=== PATIENT | male | born 1985 | race Caucasian/White ===

== ENCOUNTER 2020-06-20 18:10 | Emergency (ER) | payer BC ==
--- NOTE | 2020-06-20 19:30 | RAD REPORT ---
EXAM DESCRIPTION: RAD - Chest Single View - 06/20/2020 7:20 pm CLINICAL HISTORY: CHEST PAIN Chest pain. COMPARISON: No comparisons FINDINGS: Portable technique limits examination quality. The lungs are grossly clear. The heart is normal in size. No displaced fractures. IMPRESSION: No acute intrathoracic process suspected.
[2020-06-20] MEDS ORDERED: NA CHLORIDE 0.9% 1,000 ML ONE (19:31)
[2020-06-20 19:34] LABS: Absolute Lymphocytes (CBC) 1.3 K/uL (0.7-4.9); Basophils % 0.3 % (0-1.3); Hematocrit 43.2 % (39.6-49.0); Lymphocytes % 9.3 % (15.3-44.8); MPV 9.7 fL (7.6-11.3); RBC Red Blood Cell Count 4.78 M/uL (4.33-5.43)
[2020-06-20 19:44] LABS: Barbiturates NEGATIVE (NEGATIVE); Benzodiazepines NEGATIVE (NEGATIVE); Cocaine NEGATIVE (NEGATIVE); METHAMPHETAM NEGATIVE (NEGATIVE); Methadone NEGATIVE (NEGATIVE); Opiates NEGATIVE (NEGATIVE); Phencyclidine NEGATIVE (NEGATIVE); THC Cannibis NEGATIVE (NEGATIVE)
[2020-06-20 19:47] LABS: ALT/SGPT 25 U/L (12-78); AST/SGOT 11 U/L (15-37); Albumin 4.2 g/dL (3.4-5.0); Alkaline Phosphatase 73 U/L (45-117); BUN Blood Urea Nitrogen 17 mg/dL (7-18); Bicarbonate 24 mmol/L (21-32); Bilirubin Direct < 0.1 mg/dL (0-0.2); Bilirubin Total 0.3 mg/dL (0.2-1.0); Glucose Level 97 mg/dL (74-106); Magnesium 2.2 mg/dL (1.8-2.4); Potassium 4.1 mmol/L (3.5-5.1); Protein, Total 7.9 g/dL (6.4-8.2); Sodium Level 139 mmol/L (136-145); Troponin (Emerg Dept Use Only) < 0.02 ng/mL (0.0-0.045)
[2020-06-20 19:54] LABS: Protime INR 1.12
--- NOTE | 2020-06-20 20:11 | RAD REPORT ---
EXAM DESCRIPTION: CT - Head Brain Wo Cont - 06/20/2020 8:02 pm CLINICAL HISTORY: near-syncope Headache, drowsiness COMPARISON: No comparisons TECHNIQUE: All CT scans are performed using dose optimization technique as appropriate and may inclu de automated exposure control or mA/KV adjustment according to patient size. FINDINGS: No intracranial hemorrhage, hydrocephalus or extra-axial fluid collection.No areas of brai n edema or evidence of midline shift. The paranasal sinuses and mastoids are clear. The calvarium is intact. IMPRESSION: No acute intracranial abnormality.
[2020-06-20 20:49] LABS: Urine Blood NEGATIVE (NEG); Urine Glucose NEGATIVE (NEG); Urine Protein NEGATIVE (NEG); Urine Specific Gravity 1.015 (1.005-1.030)
--- NOTE | 2020-06-20 21:40 | EDPHYS ---
Physician Documentation [facility] Name: Andrew Wang Age: 34 yrs Sex: Male : 1985 Arrival Date: 06/20/2020 Time: 18:15 Bed 19 Private MD: ED Physician Barrington Smith HPI: 06/20 20:00 This 34 yrs old Male presents to ER via Ambulatory with complaints of Nausea, cp Anxiety. 20:00 The patient presents to the emergency department with nausea, that is mild. cp 20:00 Onset: The symptoms/episode began/occurred 3 week(s) ago. cp 20:00 Patient reports intermittent episodes chest pain, near-syncope, numbness in hands and cp legs, pain to back of head for past 3 weeks. Patient reports he was diagnosed with anxiety and prescribed Lorazepam. Had episode today at work today and took medication w/o relief. Patient denies history of anxiety and/or depression and has not been under increased stress recently. 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 - Social history:: Smoking status: Patient reports use of chewing tobacco. Patient denies any tobacco usage or history of. ROS: 20:05 Constitutional: Negative for body aches, chills, fever, poor PO intake. cp 20:05 Eyes: Negative for injury, pain, redness, and discharge. cp 20:05 ENT: Negative for ear pain, sore throat. cp 20:05 Cardiovascular: Positive for chest pain, Negative for edema, palpitations. 20:05 Respiratory: Negative for cough, shortness of breath, wheezing. 20:05 Abdomen/GI: Positive for nausea, Negative for abdominal pain, vomiting, diarrhea, constipation. 20:05 Neuro: Positive for headache, numbness, near syncope, of the right hand, left hand, right leg and left leg, Negative for altered mental status, weakness. 20:05 Psych: Negative for depression, drug dependence, auditory hallucinations, visual hallucinations, homicidal ideation, suicidal ideation. 20:05 All other systems are negative. Exam: 19:58 ECG was reviewed by the Attending Physician. cp 20:10 Constitutional: The patient appears in no acute distress, alert, awake, comfortable, cp non-diaphoretic, non-toxic, well developed, well nourished. 20:10 Head/Face: Normocephalic, atraumatic. cp 20:10 Eyes: Periorbital structures: appear normal, Conjunctiva: normal, no exudate, no injection, Sclera: no appreciated abnormality, Lids and lashes: appear normal, bilaterally. 20:10 ENT: External ear(s): are unremarkable, Nose: is normal, Mouth: Lips: moist, Oral mucosa: moist, Posterior pharynx: Airway: no evidence of obstruction, patent. 20:10 Neck: ROM/movement: is normal, is supple, without pain, no range of motions limitations. 20:10 Chest/axilla: Inspection: normal, Palpation: is normal, no crepitus, no tenderness. 20:10 Cardiovascular: Rate: normal, Rhythm: regular, Heart sounds: murmur, not appreciated, Edema: is not appreciated, JVD: is not appreciated. 20:10 Respiratory: the patient does not display signs of respiratory distress, Respirations: normal, no use of accessory muscles, no retractions, labored breathing, is not present, Breath sounds: are clear throughout, no decreased breath sounds, no stridor, no wheezing. 20:10 Abdomen/GI: Inspection: abdomen appears normal, Palpation: abdomen is soft and non-tender, in all quadrants. 20:10 Neuro: Orientation: to person, place \T\ time. Mentation: is normal, Cerebellar function: is grossly normal, Motor: moves all fours, strength is normal. Vital Signs: 18:18 BP 124 / 88; Pulse 110; Resp 18; Temp 98.2; Pulse Ox 98% ; Weight 91.63 kg; Height 5 ll1 ft. 9 in. (175.26 cm); Pain 0/10; 19:45 BP 124 / 74; Pulse 86; Resp 18; Pulse Ox 97% ; ea 21:35 BP 113 / 77; Pulse 80; Resp 18; Pulse Ox 97% ; ea 18:18 Body Mass Index 29.83 (91.63 kg, 175.26 cm) ll1 MDM: 19:01 Patient medically screened. cp 19:30 Differential diagnosis: cardiac arrythmia, anxiety, electrolyte abnormality, cp intracranial mass. 21:38 Data reviewed: vital signs, nurses notes, lab test result(s), EKG, radiologic studies, cp CT scan, plain films. 21:38 Test interpretation: by ED physician or midlevel provider: ECG. Counseling: I had a cp detailed discussion with the patient and/or guardian regarding: the historical points, exam findings, and any diagnostic results supporting the discharge/admit diagnosis, lab results, radiology results, to return to the emergency department if symptoms worsen or persist or if there are any questions or concerns that arise at home. 06/20 19:03 Order name: Basic Metabolic Panel; Complete Time: 20:18 cp 06/20 21:14 Interpretation: Normal except: GFR 79. cp 06/20 19:03 Order name: CBC with Diff; Complete Time: 20:18 cp 06/20 20:18 Interpretation: Normal except: WBC 14.5; KIRK% 84.7; LYM% 9.3; NEUT A 12.3. cp 06/20 19:03 Order name: LFT's; Complete Time: 20:18 cp 06/20 21:14 Interpretation: Normal except: AST 11; GLOB 3.7. cp 06/20 19:03 Order name: Magnesium; Complete Time: 20:18 cp 06/20 19:03 Order name: PT-INR; Complete Time: 20:18 cp 06/20 21:14 Interpretation: Abnormal: PT 13.2. cp 06/20 19:03 Order name: Troponin (emerg Dept Use Only); Complete Time: 20:18 cp 06/20 19:03 Order name: XRAY Chest (1 view); Complete Time: 20:18 cp 06/20 21:15 Interpretation: Report reviewed. cp 06/20 19:03 Order name: UDS; Complete Time: 20:18 cp 06/20 19:03 Order name: D-Dimer; Complete Time: 20:18 cp 06/20 19:03 Order name: CT Head Brain wo Cont; Complete Time: 20:18 cp 06/20 20:19 Interpretation: Report reviewed. 06/20 19:28 Order name: Urine Dipstick--Ancillary (enter results); Complete Time: 21:14 tt3 06/20 21:14 Interpretation: Reviewed. cp 06/20 19:03 Order name: EKG; Complete Time: 19:05 cp 06/20 19:03 Order name: Cardiac monitoring; Complete Time: 19:29 cp 06/20 19:03 Order name: EKG - Nurse/Tech; Complete Time: 20:15 cp 06/20 19:03 Order name: IV Saline Lock; Complete Time: 19:29 cp 06/20 19:03 Order name: Labs collected and sent; Complete Time: 19:29 cp 06/20 19:03 Order name: O2 Per Protocol; Complete Time: 19:29 cp 06/20 19:03 Order name: O2 Sat Monitoring; Complete Time: 19:29 cp 06/20 19:03 Order name: Urine Dipstick-Ancillary (obtain specimen); Complete Time: 19:29 cp EC:58 Rate is 86 beats/min. Rhythm is regular. CT interval is normal. QRS interval is normal. cp QT interval is normal. Interpreted by me. Reviewed by me. Administered Medications: 19:04 CANCELLED (Physician Discretion): TORadol - Ketorolac 15 mg IVP once cp 19:20 Drug: NS 0.9% 1000 ml Route: IV; Rate: 1 bolus; Site: left antecubital; ea 21:57 Follow up: Response: No adverse reaction; IV Status: Completed infusion; IV Intake: ea 1000ml 21:57 Follow up: Response: No adverse reaction; IV Status: Completed infusion; IV Intake: ea 1000ml 19:42 Not Given (Other Intervention Used): NS 0.9% 1000 ml IV at 1 bolus Per protocol; 1000 ea mL bolus Disposition: 22:00 Chart complete. cp 06/21 07:06 Co-signature as Attending Physician, Barrington Smith MD. [email or web address] Disposition: 06/20/20 21:39 Discharged to Home. Impression: Nausea, Other chest pain, Headache. - Condition is Stable. - Discharge Instructions: Nonspecific Chest Pain, Near-Syncope, Aspirin and Your Heart, Generalized Anxiety Disorder. - Medication Reconciliation Form, Thank You Letter, Antibiotic Education, Prescription Opioid Use form. - Follow up: Private Physician; When: 1 - 2 days; Reason: Recheck today's complaints. - Problem is new. - Symptoms have improved. Signatures: Dispatcher [employer] EDMS Polo Patiño PA PA cp Antunez, Elena, RN RN ea Lewis, Lynsay, RN RN [facility] Barrington Smith MD MD 7 Corrections: (The following items were deleted from the chart) 06/20 19:04 19:03 TORadol - Ketorolac 15 mg IVP once ordered. cp cp 21:40 21:39 06/20/2020 21:39 Discharged to Home. Impression: Nausea; Other chest pain. cp Condition is Stable. Forms are Medication Reconciliation Form, Thank You Letter, Antibiotic Education, Prescription Opioid Use. Follow up: Private Physician; When: 1 - 2 days; Reason: Recheck today's complaints. Problem is new. Symptoms have improved. cp 21:57 21:40 06/20/2020 21:39 Discharged to Home. Impression: Nausea; Other chest pain; ea Headache. Condition is Stable. Discharge Instructions: Nonspecific Chest Pain, Aspirin and Your Heart, Near-Syncope. Forms are Medication Reconciliation Form, Thank You Letter, Antibiotic Education, Prescription Opioid Use. Follow up: Private Physician; When: 1 - 2 days; Reason: Recheck today's complaints. Problem is new. Symptoms have improved. cp
--- NOTE | 2020-06-20 21:40 | ER ---
Nurse's Notes [facility] Name: Andrew Wang Age: 34 yrs Sex: Male : 1985 Arrival Date: 06/20/2020 Time: 18:15 Bed 19 Private MD: Diagnosis: Nausea;Other chest pain;Headache Presentation: 06/20 18:18 Chief complaint: Patient states: CP, SOB, nausea, numbness to arms/legs int. for 3 ll1 weeks. Took extra lorazepam today, didn't help. Coronavirus screen: Client denies travel out of the [place] in the last 14 days. difficulty breathing, fatigue, nausea, Client presents with at least one sign or symptom that may indicate coronavirus-19. Standard/surgical mask placed on the client. Ebola Screen: Patient denies travel to an Ebola-affected area in the 21 days before illness onset. Initial Sepsis Screen: Does the patient meet any 2 criteria? HR > 90 bpm. No. Patient's initial sepsis screen is negative. Does the patient have a suspected source of infection? No. Patient's initial sepsis screen is negative. Risk Assessment: Do you want to hurt yourself or someone else? Patient reports no desire to harm self or others. Onset of symptoms was May 30, 2020. 18:18 Method Of Arrival: Ambulatory ll1 18:18 Acuity: ANUSHKA 3 ll1 Triage Assessment: 18:20 General: Appears distressed, comfortable, Behavior is cooperative, appropriate for age, bp anxious. Pain: Complains of pain in chest. EENT: No deficits noted. Neuro: Level of Consciousness is awake, alert, obeys commands, Oriented to Appropriate for age Reports ANXIETY. Cardiovascular: Rhythm is sinus tachycardia Chest pain is described as mild, began 3 WK AGO. Respiratory: Reports shortness of breath. GI: Reports lower abdominal pain, upper abdominal pain. : No signs and/or symptoms were reported regarding the genitourinary system. Derm: No deficits noted. Musculoskeletal: No deficits noted. 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 - Social history:: Smoking status: Patient reports use of chewing tobacco. Patient denies any tobacco usage or history of. Screenin:20 Abuse screen: Denies threats or abuse. Denies injuries from another. Nutritional bp screening: No deficits noted. Tuberculosis screening: No symptoms or risk factors identified. Fall Risk None identified. Assessment: 18:20 General: SEE TRIAGE NOTE. bp 19:15 General: Appears in no apparent distress. Behavior is appropriate for age. Pain: ea Complains of pain in chest. Neuro: Level of Consciousness is awake, alert, obeys commands, Oriented to person, place, time. Respiratory: Airway is patent Respiratory effort is even, unlabored, Respiratory pattern is regular, symmetrical. GI: Abdomen is non-distended. Derm: Skin is pink, warm \T\ dry. 20:15 Reassessment: Patient and/or family updated on plan of care and expected duration. Pain ea level reassessed. Patient is alert, oriented x 3, equal unlabored respirations, skin warm/dry/pink. Returned from CT awaiting on results. 21:55 Reassessment: Patient and/or family updated on plan of care and expected duration. Pain ea level reassessed. Patient is alert, oriented x 3, equal unlabored respirations, skin warm/dry/pink. Discharge instruction given to patient, verbalized the understanding of instruction. Pt left ED ambulatory tolerating well. Vital Signs: 18:18 BP 124 / 88; Pulse 110; Resp 18; Temp 98.2; Pulse Ox 98% ; Weight 91.63 kg; Height 5 ll1 ft. 9 in. (175.26 cm); Pain 0/10; 19:45 BP 124 / 74; Pulse 86; Resp 18; Pulse Ox 97% ; ea 21:35 BP 113 / 77; Pulse 80; Resp 18; Pulse Ox 97% ; ea 18:18 Body Mass Index 29.83 (91.63 kg, 175.26 cm) ll1 ED Course: 18:15 Patient arrived in ED. mr 18:20 Triage completed. ll1 18:20 Patient has correct armband on for positive identification. Bed in low position. Call bp light in reach. Side rails up X2. 18:21 Arm band placed on Patient placed in an exam room, on a stretcher. ll1 18:37 Ronny Melendez, ELAINE is Primary Nurse. bp 18:48 Polo Patiño PA is PHCP. cp 18:48 Hsu, Addison, MD is Attending Physician. cp 19:15 Inserted saline lock: 20 gauge in left antecubital area, using aseptic technique. Blood jp3 collected. Patient maintains SpO2 saturation greater than 95% on room air. 19:20 Initial lab(s) drawn, by me, sent to lab. jp3 19:21 XRAY Chest (1 view) In Process Unspecified. EDMS 19:25 Urine collected: clean catch specimen, clear, porsche colored. jp3 19:51 Barrington Smith MD is Attending Physician. cp 20:01 CT Head Brain wo Cont In Process Unspecified. EDMS 21:52 IV discontinued, intact, bleeding controlled, No redness/swelling at site. Pressure ea dressing applied. 21:56 No provider procedures requiring assistance completed. ea Administered Medications: 19:04 CANCELLED (Physician Discretion): TORadol - Ketorolac 15 mg IVP once cp 19:20 Drug: NS 0.9% 1000 ml Route: IV; Rate: 1 bolus; Site: left antecubital; ea 21:57 Follow up: Response: No adverse reaction; IV Status: Completed infusion; IV Intake: ea 1000ml 21:57 Follow up: Response: No adverse reaction; IV Status: Completed infusion; IV Intake: ea 1000ml 19:42 Not Given (Other Intervention Used): NS 0.9% 1000 ml IV at 1 bolus Per protocol; 1000 ea mL bolus Intake: 21:57 IV: 1000ml; Total: 1000ml. ea 21:57 IV: 1000ml; Total: 2000ml. ea Outcome: 21:39 Discharge ordered by MD. cp 21:56 Discharged to home ambulatory. ea 21:56 Condition: stable 21:56 Discharge instructions given to patient, Instructed on discharge instructions, follow up and referral plans. Demonstrated understanding of instructions, follow-up care. 21:57 Patient left the ED. ea Signatures: Dispatcher [employer] EDWA Zahra Chua Polo Mancia PA PA cp Antunez, Elena, Ronny Jain RN, ea RN Hola Alexander jp3 Rogelio Altman RN RN ll1
[2020-06-20 22:23] VITALS: TEMP 98.2
[2020-06-20 22:24] VITALS: O2SAT 97
[2020-06-20 22:26] VITALS: BP 113/77
--- NOTE | 2020-06-22 05:59 | EKG ---
Test Date: 2020-06-20 Test Time: 19:57:30 Medical Anthropology Director: SANG MEASUREMENT RESULTS: Intervals: Rate: 86 WI: 148 QRSD: 80 QT: 358 QTc: 428 [place]: P: 31 WI: 148 QRS: 10 T: 50 INTERPRETIVE STATEMENTS: Normal sinus rhythm Normal ECG No previous ECG available for comparison Electronically Signed On 06-22-20 05:56:09 CDT by Chacho Ivy
--- OUTSIDE RECORDS SUMMARY | 2020-06-23 09:03 | XMS REPORT | Continuity of Care Document ---
:1985 Author Organization [facility] t Address [address] [place] [address] [address] [place] [address] Care Team Providers Name Role Phone MEREDITH Attending Clinician Unavailable Payers Payer Name Policy Type Policy Effective Date Expiration Date Sour Number BCBSBCBS CHOICE [id number] [employer] PPO/FEDERAL 00:00:00 [employer] EMPL [id number] 2019-Presen tPPO Problems This patient has no known problems. Allergies, Adverse Reactions, Alerts This patient has no known allergies or adverse reactions. Social History Social Habit Start Date Stop Date Quantity Comments Source Sex Assigned At Justin Cobianist Medications This patient has no known medications. Procedures Procedure Date / Time Performed Performing Clinician Sour e AEROBIC CULTURE 2020-01-13 11:00:00 Ger Salazar Me thodist GRAM STAIN 2020-01-13 11:00:00 Ger Salazar Me thodist ANAEROBIC CULTURE 2020-01-13 11:00:00 Ger Salazarist AFB CULTURE 2020-01-13 11:00:00 Ger Salazar Me thodist AFB STAIN 2020-01-13 11:00:00 Ger Salazar Me thodist Plan of Care Planned Activity Planned Date Details Comments Source Future Scheduled 2020-04-16 INFLUENZA VACCINE [place] [facility] 00:00:00 [code = INFLUENZA VACCINE] Encounters Start End Encounter Admission Attending Care Care Encounter Source Date/Time Date/Time Type Type Clinicians Facility Department ID 2020-01-13 2020-01-13 Outpatient MEREDITH [facility] [id number] [employer] 00:00:00 00:00:00 GER Niño Method i st Results This patient has no known results.
--- OUTSIDE RECORDS SUMMARY | 2020-06-23 09:03 | XMS REPORT | Clinical Summary ---
:1985 Author Organization [facility] [address] [place] [address] Care Team Providers Name Role Phone Unavailable Primary Care Provider Unavailable Allergies Not on File Medications Not on file Active Problems Not on file Encounters Date Type Specialty Care Team Description 01/13/2020 Travel after 06/22/2019 Social History Tobacco Use Types Packs/Day Years Used Date Never Assessed Sex Assigned at Date Recorded Not on file Last Filed Vital Signs Not on file Plan of Treatment Health Maintenance Due Date Last Done Comments INFLUENZA VACCINE 04/16/2020 Procedures Procedure Name Priority Date/Time Associated Diagnosis Comme nts AFB STAIN Routine 01/13/2020 11:00 AM Results for this CDT procedure are i n the results section. AFB CULTURE Routine 01/13/2020 11:00 AM Results for this CDT procedure are i n the results section. ANAEROBIC CULTURE Routine 01/13/2020 11:00 AM Res ults for this CDT procedure are i n the results section. GRAM STAIN Routine 01/13/2020 11:00 AM Results for this CDT procedure are i n the results section. AEROBIC CULTURE Routine 01/13/2020 11:00 AM Chronic serous emre tis Results for this CDT media, unspecified procedure are in ear the results section. after 06/22/2019 Results AFB culture (01/13/2020 11:00 AM CDT) AFB culture No growth after 6 weeks of incubation. CALEB SÁNCHEZ isolate Comment: HOSPITAL Specimen Information Specimen Source: Ear Specimen Site: RT EAR Specimen Ear Performing Organization Address City/State/ZIP Code Phon e Number [facility] DEPARTMENT OF PATHOLOGY AND [address] [place], [place] [phone] GENOMIC MEDICINE [facility] [address] [place] [phone] Aerobic culture (01/13/2020 11:00 AM CDT) Aerobic culture Aspergillus niger (A) JORGE A GUTHRIE Sebastian isolate Comment: HOSPITAL Specimen Information Specimen Source: Ear Specimen Site: RT EAR Specimen Ear Performing Organization Address [facility] Phon e Number [facility] DEPARTMENT OF PATHOLOGY AND [address] [place] [address] [phone] [address] Gram stain (01/13/2020 11:00 AM CDT) Gram stain isolate No WBC's or organisms seen. JORGE A SÁNCHEZ Comment: HOSPITAL Specimen Information Specimen Source: Ear Specimen Site: RT EAR Specimen Ear Performing Organization Address [facility] Phon e Number [facility] DEPARTMENT OF PATHOLOGY AND [address] [place] [address] [phone] [address] AFB stain (01/13/2020 11:00 AM CDT) Pathologist Sig nature AFB stain No acid fast bacilli (AFB) seen. JORGE A SÁNCHEZ Comment: HOSPITAL Specimen Information Specimen Source: Ear Specimen Site: RT EAR Specimen Ear Performing Organization Address [facility] Phon e Number [facility] DEPARTMENT OF PATHOLOGY AND [address] [place] [address] [phone] [address] Anaerobic culture (01/13/2020 11:00 AM CDT) Anaerobic culture No anaerobic organisms isolated. 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
== END 2020-06-20 21:57 | disposition home or self-care (01) ==
LOC: ER 18:10
DX: R07.89 Other chest pain (principal); R51.9 Headache, unspecified
CPT/HCPCS: 96361; 93005; 85025; 80048; 36415; 83735; 85610; 85379; 80076; 80307 ×8; 81003; 84484; 70450; 71045; 96360; 99285; J7030

== ENCOUNTER 2020-06-24 18:09 | Emergency (ER) | payer BC ==
--- OUTSIDE RECORDS SUMMARY | 2020-06-24 18:11 | XMS REPORT | Clinical Summary ---
:1985 Author Organization [facility] [address] [place] [address] Care Team Providers Name Role Phone Unavailable Primary Care Provider Unavailable Allergies Not on File Medications Not on file Active Problems Not on file Encounters Date Type Specialty Care Team Description 01/13/2020 Travel after 06/24/2019 Social History Tobacco Use Types Packs/Day Years [...] CULTURE Routine 01/13/2020 11:00 AM Chronic serous mere tis Results for this CDT media, unspecified procedure are in ear the results section. after 06/24/2019 Results AFB culture (01/13/2020 11:00 AM CDT) AFB culture No growth after 6 weeks of incubation. CALEB SÁNCHEZ isolate Comment: HOSPITAL Specimen Information Specimen Source: Ear Specimen Site: RT EAR Specimen Ear Performing Organization Address City/State/ZIP Code Phon e Number [facility] DEPARTMENT OF PATHOLOGY AND [address], [place] [address] GENOMIC MEDICINE [facility] [address] [place] [id number] Aerobic culture (01/13/2020 11:00 AM CDT) Aerobic culture Aspergillus niger (A) JORGE A GUTHRIE Sebastian isolate Comment: HOSPITAL Specimen Information Specimen Source: Ear Specimen Site: RT EAR Specimen Ear Performing Organization Address [facility] Phon e Number [facility] DEPARTMENT OF PATHOLOGY AND [address] [place] [address] [phone] [address] Gram stain (01/13/2020 11:00 AM CDT) Gram stain isolate No WBC's or organisms seen. JORGE A SÁNCHEZ Comment: HOSPITAL Specimen Information Specimen Source: Ear Specimen Site: RT EAR Specimen Ear Performing Organization Address [facility] Phon e Number [facility] DEPARTMENT OF PATHOLOGY AND [address] [place] [address] [phone] [address] AFB stain (01/13/2020 11:00 AM CDT) Pathologist Sig nature AFB stain No acid fast bacilli (AFB) seen. JORGE A SÁNCHEZ Comment: HOSPITAL Specimen Information Specimen Source: Ear Specimen Site: RT EAR Specimen Ear Performing Organization Address [facility] Phon e Number [facility] DEPARTMENT OF PATHOLOGY AND [address] [place] [address] [phone] [address] Anaerobic culture (01/13/2020 11:00 AM CDT) Anaerobic culture No anaerobic organisms isolated. 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
--- OUTSIDE RECORDS SUMMARY | 2020-06-24 18:11 | XMS REPORT | Continuity of Care Document ---
:1985 Author Organization [facility] t Address [address] [place] [address] [place] [address] Care Team Providers Name Role Phone MEREDITH Attending Clinician Unavailable Payers Payer Name Policy Type Policy Effective Date Expiration Date Sour ce Number BCBSBCBS CHOICE [id number] 2019 [place] PPO/FEDERAL 00:00:00 [employer] EMPL [id number] 2019-Presen tPPO Problems This patient has no known problems. Allergies, Adverse Reactions, Alerts This patient has no known allergies or adverse reactions. Social History Social Habit Start Date Stop Date Quantity Comments Source Sex Assigned At Justin shay [employer] Medications This patient has no known medications. Procedures Procedure Date / Time Performed Performing Clinician Sourc e AEROBIC CULTURE 2020-01-13 11:00:00 Ger Salazar Me [facility]odist GRAM STAIN 2020-01-13 11:00:00 Ger Salazar Me thodist ANAEROBIC CULTURE 2020-01-13 11:00:00 Ger Salazarist AFB CULTURE 2020-01-13 11:00:00 Ger Salazar Me thodist AFB STAIN 2020-01-13 11:00:00 Ger Salazar Me thodist Plan of Care Planned Activity Planned Date Details Comments Source Future Scheduled 2020-04-16 INFLUENZA VACCINE [place] [employer] Test 00:00:00 [code = INFLUENZA VACCINE] Encounters Start End Encounter Admission Attending Care Care Encounter Source Date/Time Date/Time Type Type Clinicians Facility Department ID 2020-01-13 2020-01-13 Outpatient MEREDITH [facility] [id number] [address] [place] 00:00:00 00:00:00 GER Niño [facility] Results This patient has no known results.
[2020-06-24] MEDS ORDERED: NA CHLORIDE 0.9% 1,000 ML ONE (18:58)
[2020-06-24 19:14] LABS: Absolute Lymphocytes (CBC) 1.5 K/uL (0.7-4.9); Basophils % 0.4 % (0-1.3); Hematocrit 43.6 % (39.6-49.0); Lymphocytes % 11.5 % (15.3-44.8); MPV 9.9 fL (7.6-11.3); RBC Red Blood Cell Count 4.85 M/uL (4.33-5.43)
[2020-06-24] MEDS ORDERED: LORazepam 2 MG/ML VIAL ONE (19:25)
[2020-06-24 19:28] LABS: Protime INR 1.09
[2020-06-24 19:34] LABS: ALT/SGPT 30 U/L (12-78); AST/SGOT 13 U/L (15-37); Albumin 4.2 g/dL (3.4-5.0); Alkaline Phosphatase 76 U/L (45-117); BUN Blood Urea Nitrogen 8 mg/dL (7-18); Bicarbonate 28 mmol/L (21-32); Bilirubin Direct < 0.1 mg/dL (0-0.2); Bilirubin Total 0.3 mg/dL (0.2-1.0); Glucose Level 90 mg/dL (74-106); Magnesium 2.2 mg/dL (1.8-2.4); NT PRO-BNP 8 pg/mL (<125); Potassium 3.8 mmol/L (3.5-5.1); Sodium Level 141 mmol/L (136-145); Troponin (Emerg Dept Use Only) < 0.02 ng/mL (0.0-0.045)
--- NOTE | 2020-06-24 19:59 | ER ---
Nurse's Notes [facility] Name: Andrew Wang Age: 34 yrs Sex: Male : 1985 Arrival Date: 06/24/2020 Time: 18:13 Bed 4 Private MD: Diagnosis: Anxiety disorder, unspecified;Chest pain, unspecified Presentation: 06/24 18:14 Chief complaint: Patient states: States he has been having anxiety the past 3 weeks. ll1 Venlafaxine started Saturday. Lorazepam started about 2 weeks ago. Reports palm sweating, tense jaw, head crawling since starting venlafaxine. Coronavirus screen: Client denies travel out of the [place] in the last 14 days. At this time, the client does not indicate any symptoms associated with coronavirus-19. Ebola Screen: Patient denies travel to an Ebola-affected area in the 21 days before illness onset. Initial Sepsis Screen: Does the patient meet any 2 criteria? No. Patient's initial sepsis screen is negative. Does the patient have a suspected source of infection? No. Patient's initial sepsis screen is negative. Risk Assessment: Do you want to hurt yourself or someone else? Patient reports no desire to harm self or others. Onset of symptoms was June 10, 2020. 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 - Social history:: Smoking status: Patient reports use of chewing tobacco. Patient denies any tobacco usage or history of. - Family history:: not pertinent. Screenin:41 Abuse screen: Denies threats or abuse. Nutritional screening: No deficits noted. em Tuberculosis screening: No symptoms or risk factors identified. Fall Risk None identified. Assessment: 18:25 General: Appears in no apparent distress. slender, Behavior is cooperative, anxious. tw2 Pain: Complains of pain in jaw. Neuro: Level of Consciousness is awake, alert, obeys commands, Oriented to person, place, time, situation. Cardiovascular: Heart tones S1 S2 Capillary refill < 3 seconds Patient's skin is warm and dry. Respiratory: Airway is patent Respiratory effort is even, unlabored, Respiratory pattern is regular, symmetrical, Breath sounds are clear bilaterally. GI: No signs and/or symptoms were reported involving the gastrointestinal system. Abdomen is flat, Bowel sounds present X 4 quads. : No signs and/or symptoms were reported regarding the genitourinary system. EENT: No signs and/or symptoms were reported regarding the EENT system. Derm: No signs and/or symptoms reported regarding the dermatologic system. Musculoskeletal: Range of motion: intact in all extremities. 19:10 Reassessment: Patient appears in no apparent distress at this time. Patient and/or jb4 family updated on plan of care and expected duration. Pain level reassessed. Patient is alert, oriented x 3, equal unlabored respirations, skin warm/dry/pink. 20:36 Reassessment: Patient appears in no apparent distress at this time. Patient and/or jb4 family updated on plan of care and expected duration. Pain level reassessed. Patient is alert, oriented x 3, equal unlabored respirations, skin warm/dry/pink. PT verbalized understanding of d/c and follow up instructions. Answered questions and concerns. Vital Signs: 18:14 BP 137 / 94; Pulse 89; Resp 17; Temp 98.1; Pulse Ox 99% ; Weight 92.99 kg; Height 5 ft. ll1 9 in. (175.26 cm); Pain 4/10; 19:30 BP 116 / 84; Pulse 75; Resp 16; Pulse Ox 99% on R/A; jb4 20:00 BP 124 / 82; Pulse 83; Resp 16; Pulse Ox 97% on R/A; jb4 18:14 Body Mass Index 30.27 (92.99 kg, 175.26 cm) ll1 ED Course: 18:13 Patient arrived in ED. ll1 18:16 Triage completed. ll1 18:17 Arm band placed on Patient placed in an exam room, on a stretcher. ll1 18:25 German Ramos, ELAINE is Primary Nurse. em 18:31 Polo Carolina MD is Attending Physician. reyna 18:41 Patient has correct armband on for positive identification. Placed in gown. Bed in low em position. 18:55 Initial lab(s) drawn, by me, sent to lab. Inserted saline lock: 20 gauge in left em antecubital area, using aseptic technique. Blood collected. 19:08 Report given to ELAINE Castro and ELAINE Pineda. tw2 19:26 Primary Nurse role handed off by German Ramos RN jb4 19:26 Rodriguez Mariscal, RN is Primary Nurse. jb4 19:33 XRAY Chest (1 view) In Process Unspecified. EDMS 19:58 Biju Huynh MD is Referral Physician. kb 20:39 No provider procedures requiring assistance completed. IV discontinued, intact, jb4 bleeding controlled, No redness/swelling at site. Pressure dressing applied. Administered Medications: 18:57 Drug: NS 0.9% 1000 ml Route: IV; Rate: 1 bolus; Site: left antecubital; tw2 20:00 Follow up: Response: No adverse reaction; IV Status: Completed infusion; IV Intake: jb4 1000ml 19:18 Drug: Ativan 1 mg Route: IVP; Site: left antecubital; jb4 20:05 Follow up: Response: No adverse reaction; Marked relief of symptoms jb4 20:26 Drug: ToPROL XL 25 mg Route: PO; jb4 20:40 Follow up: Response: No adverse reaction jb4 Intake: 20:00 IV: 1000ml; Total: 1000ml. jb4 Outcome: 19:58 Discharge ordered by . kb 20:39 Discharged to home ambulatory. jb4 20:39 Condition: stable 20:39 Discharge instructions given to patient, Instructed on discharge instructions, follow up and referral plans. medication usage, Demonstrated understanding of instructions, follow-up care, medications, Prescriptions given X 3. 20:40 Patient left the ED. jb4 Signatures: Dispatcher [employer] [facility] Isabel Ray, ASSISTANT PROFESSOR OF NURSING-C ASSISTANT PROFESSOR OF NURSING-Ckb Polo Carolina MD MD cha Munoz, Edgar, ELAINE HENRY Lesely Tipton RN RN tw2 Rodriguez Mariscal RN RN jb4 Rogelio Altman RN RN ll1 Corrections: (The following items were deleted from the chart) 18:25 18:14 Chief complaint: Patient states: Venlafaxine started Saturday. Lorazepam started ll1 about 2 weeks ago. Reports palm sweating, tense jaw, head crawling since starting venlafaxine. ll1
--- NOTE | 2020-06-24 19:59 | EDPHYS ---
Physician Documentation [facility] Name: Andrew Wang Age: 34 yrs Sex: Male : 1985 Arrival Date: 06/24/2020 Time: 18:13 Bed 4 Private MD: QUANG Physician Polo Carolina HPI: 06/24 18:39 This 34 yrs old Male presents to ER via Ambulatory with complaints of Anxiety.reyna 18:39 The patient presents to the emergency department with anxiety. Onset: The reyna symptoms/episode began/occurred 4 day(s) ago. Past psychiatric history: Prior diagnosis: no previous psychiatric diagnosis known. The patient or guardian reports chest pain that is located primarily in the substernal area. The pain does not radiate. Associated signs and symptoms: The patient has no apparent associated signs or symptoms. The chest pain is described as a heaviness. Modifying factors: The symptoms are alleviated by nothing. the symptoms are aggravated by nothing. Severity of pain: At its worst the pain was mild in the emergency department the pain is unchanged. 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 - Social history:: Smoking status: Patient reports use of chewing tobacco. Patient denies any tobacco usage or history of. - Family history:: not pertinent. ROS: 18:39 Constitutional: Negative for fever, chills, and weight loss, Eyes: Negative for injury, reyna pain, redness, and discharge, ENT: Negative for injury, pain, and discharge, Neck: Negative for injury, pain, and swelling, Cardiovascular: Negative for chest pain, palpitations, and edema, Respiratory: Negative for shortness of breath, cough, wheezing, and pleuritic chest pain, Abdomen/GI: Negative for abdominal pain, nausea, vomiting, diarrhea, and constipation, Back: Negative for injury and pain, : Negative for injury, bleeding, discharge, and swelling, MS/Extremity: Negative for injury and deformity, Skin: Negative for injury, rash, and discoloration, Neuro: Negative for headache, weakness, numbness, tingling, and seizure, Psych: Negative for depression, anxiety, suicide ideation, homicidal ideation, and hallucinations, Allergy/Immunology: Negative for hives, rash, and allergies, Endocrine: Negative for neck swelling, polydipsia, polyuria, polyphagia, and marked weight changes, Hematologic/Lymphatic: Negative for swollen nodes, abnormal bleeding, and unusual bruising. 18:39 Neuro: Positive for dizziness, weakness. 18:39 Psych: Positive for anxiety. Exam: 18:41 Constitutional: This is a well developed, well nourished patient who is awake, alert, reyna and in no acute distress. Head/Face: Normocephalic, atraumatic. Eyes: Pupils equal round and reactive to light, extra-ocular motions intact. Lids and lashes normal. Conjunctiva and sclera are non-icteric and not injected. Cornea within normal limits. Periorbital areas with no swelling, redness, or edema. ENT: Nares patent. No nasal discharge, no septal abnormalities noted. Tympanic membranes are normal and external auditory canals are clear. Oropharynx with no redness, swelling, or masses, exudates, or evidence of obstruction, uvula midline. Mucous membranes moist. Neck: Trachea midline, no thyromegaly or masses palpated, and no cervical lymphadenopathy. Supple, full range of motion without nuchal rigidity, or vertebral point tenderness. No Meningismus. Chest/axilla: Normal chest wall appearance and motion. Nontender with no deformity. No lesions are appreciated. Cardiovascular: Regular rate and rhythm with a normal S1 and S2. No gallops, murmurs, or rubs. Normal PMI, no JVD. No pulse deficits. Respiratory: Lungs have equal breath sounds bilaterally, clear to auscultation and percussion. No rales, rhonchi or wheezes noted. No increased work of breathing, no retractions or nasal flaring. Abdomen/GI: Soft, non-tender, with normal bowel sounds. No distension or tympany. No guarding or rebound. No evidence of tenderness throughout. Back: No spinal tenderness. No costovertebral tenderness. Full range of motion. Male : Normal genitalia with no discharge or lesions. Skin: Warm, dry with normal turgor. Normal color with no rashes, no lesions, and no evidence of cellulitis. MS/ Extremity: Pulses equal, no cyanosis. Neurovascular intact. Full, normal range of motion. Neuro: Awake and alert, GCS 15, oriented to person, place, time, and situation. Cranial nerves II-XII grossly intact. Motor strength 5/5 in all extremities. Sensory grossly intact. Cerebellar exam normal. Normal gait. Psych: Awake, alert, with orientation to person, place and time. Behavior, mood, and affect are within normal limits. 18:41 Musculoskeletal/extremity: DVT Exam: No signs of deep vein thrombosis. no pain, no swelling, no tenderness, negative Homans' sign noted on exam, no appreciated bluish discoloration, no erythema, no increased warmth. 19:26 ECG was reviewed by the Attending Physician. [facility] Vital Signs: 18:14 BP 137 / 94; Pulse 89; Resp 17; Temp 98.1; Pulse Ox 99% ; Weight 92.99 kg; Height 5 ft. ll1 9 in. (175.26 cm); Pain 4/10; 19:30 BP 116 / 84; Pulse 75; Resp 16; Pulse Ox 99% on R/A; jb4 20:00 BP 124 / 82; Pulse 83; Resp 16; Pulse Ox 97% on R/A; jb4 18:14 Body Mass Index 30.27 (92.99 kg, 175.26 cm) ll1 MDM: 18:31 Patient medically screened. reyna 18:41 Differential diagnosis: depression, abnormal EKG, anxiety, chest wall pain, reyna costochondritis. HEART Score: History: Slightly Suspicious (0), ECG: Normal (0), Age: < or = 45 years (0), Risk Factors: No Risk Factors Known (0), Troponin: > or = 3 x Normal Limit (2). The patient's deep vein thrombosis risk score was calculated as follows: Total Score: 0. This patient was found to be at low risk for a deep vein thrombosis by using the Well's assessment criteria. The patient's pulmonary embolism risk score was calculated as follows: Total Score: 0-2 points. This patient was found to be at low risk for a pulmonary embolism by using the Well's assessment criteria. BERNADINE Risk Score: TOTAL SCORE = 0. Data reviewed: vital signs, nurses notes, lab test result(s), EKG, radiologic studies, plain films. Data interpreted: denture contour wire specialist: not applicable for this patient encounter. Pulse oximetry: on room air is 99 %. Test interpretation: by ED physician or midlevel provider: ECG, plain radiologic studies. Counseling: I had a detailed discussion with the patient and/or guardian regarding: the historical points, exam findings, and any diagnostic results supporting the discharge/admit diagnosis, lab results, radiology results. 06/24 18:43 Order name: Basic Metabolic Panel [facility] 06/24 18:43 Order name: CBC with Diff [facility] 06/24 18:43 Order name: LFT's; Complete Time: 19:58 [facility] 06/24 18:43 Order name: Magnesium; Complete Time: 19:58 [facility] 06/24 18:43 Order name: NT PRO-BNP; Complete Time: 19:58 [facility] 06/24 18:43 Order name: Troponin (emerg Dept Use Only); Complete Time: 19:58 [facility] 06/24 18:43 Order name: Acetaminophen; Complete Time: 19:58 [facility] 06/24 18:43 Order name: ETOH Level; Complete Time: 19:58 [facility] 06/24 18:43 Order name: PT-INR; Complete Time: 19:38 [facility] 06/24 18:43 Order name: Ptt, Activated; Complete Time: 19:38 [facility] 06/24 18:43 Order name: Salicylate; Complete Time: 19:38 [facility] 06/24 18:44 Order name: Urine Drug Screen [facility] 06/24 18:44 Order name: D-Dimer; Complete Time: 19:38 [facility] 06/24 18:45 Order name: Basic Metabolic Panel; Complete Time: 19:58 EDMS 06/24 18:43 Order name: XRAY Chest (1 view) [facility] 06/24 18:43 Order name: EKG; Complete Time: 18:45 [facility] 06/24 18:43 Order name: Cardiac monitoring; Complete Time: 18:57 [facility] 06/24 18:43 Order name: EKG - Nurse/Tech; Complete Time: 18:57 [facility] 06/24 18:43 Order name: IV Saline Lock; Complete Time: 18:57 [facility] 06/24 18:43 Order name: Labs collected and sent; Complete Time: 18:57 [facility] 06/24 18:43 Order name: O2 Per Protocol; Complete Time: 18:57 [facility] 06/24 18:43 Order name: O2 Sat Monitoring; Complete Time: 18:57 [facility] 06/24 18:44 Order name: Urine Dipstick-Ancillary (obtain specimen); Complete Time: 20:04 [facility] 06/24 18:45 Order name: CBC with Automated Diff; Complete Time: 19:23 [facility] 06/24 18:59 Order name: TSH; Complete Time: 19:58 em 06/24 20:18 Order name: Urine Dipstick--Ancillary (enter results) mw2 EC:26 Rate is 88 beats/min. Rhythm is regular. QRS [place] is Normal. SD interval is normal. QRS reyna interval is normal. QT interval is normal. No Q waves. T waves are Normal. No ST changes noted. Clinical impression: Normal ECG and No evidence of ischemia. Interpreted by me. Reviewed by me. Administered Medications: 18:57 Drug: NS 0.9% 1000 ml Route: IV; Rate: 1 bolus; Site: left antecubital; tw2 20:00 Follow up: Response: No adverse reaction; IV Status: Completed infusion; IV Intake: jb4 1000ml 19:18 Drug: Ativan 1 mg Route: IVP; Site: left antecubital; jb4 20:05 Follow up: Response: No adverse reaction; Marked relief of symptoms jb4 20:26 Drug: ToPROL XL 25 mg Route: PO; jb4 20:40 Follow up: Response: No adverse reaction jb4 Disposition: 06/24/20 19:58 Discharged to Home. Impression: Anxiety disorder, unspecified, Chest pain, unspecified. - Condition is Stable. - Discharge Instructions: Panic Attacks, Nonspecific Chest Pain, Hypertension, Nonspecific Chest Pain, Pihe-ov-Nggi, Panic Attacks, Zgoh-lm-Reok, Aspirin and Your Heart. - Prescriptions for Hydroxyzine HCl 25 mg Oral Tablet - take 1 tablet by ORAL route every 6 hours As needed; 30 tablet. Pepcid 20 mg Oral Tablet - take 1 tablet by ORAL route every 12 hours for 10 days; 20 tablet. Toprol XL 25 mg Oral Tablet - take 1 tablet by ORAL route once daily; 20 tablet. - Medication Reconciliation Form, Thank You Letter, Antibiotic Education, Prescription Opioid Use form. - Follow up: Private Physician; When: 2 - 3 days; Reason: Recheck today's complaints, Continuance of care, Re-evaluation by your physician. Follow up: Biju Huynh; When: 2 - 3 days; Reason: Recheck today's complaints, Re-evaluation by your physician. - Problem is new. - Symptoms have improved. Signatures: Dispatcher [employer] EDMS Isabel Ray, CHILD CARE CENTRE MANAGER-C CHILD CARE CENTRE MANAGER-Ckb Polo Carolina MD MD cha Wise, Tara, RN RN tw2 Rodriguez Mariscal, RN RN jb4 Rogelio Altman, RN RN ll1 Corrections: (The following items were deleted from the chart) 20:40 19:58 06/24/2020 19:58 Discharged to Home. Impression: Anxiety disorder, unspecified; jb4 Chest pain, unspecified. Condition is Stable. Discharge Instructions: Panic Attacks, Nonspecific Chest Pain, Nonspecific Chest Pain, Ozhf-jf-Pqwj, Panic Attacks, Bibu-mh-Uduu, Aspirin and Your Heart, Hypertension. Prescriptions for Hydroxyzine HCl 25 mg Oral Tablet - take 1 tablet by ORAL route every 6 hours As needed; 30 tablet, Pepcid 20 mg Oral Tablet - take 1 tablet by ORAL route every 12 hours for 10 days; 20 tablet, Toprol XL 25 mg Oral Tablet - take 1 tablet by ORAL route once daily; 20 tablet. and Forms are Medication Reconciliation Form, Thank You Letter, Antibiotic Education, Prescription Opioid Use. Follow up: Private Physician; When: 2 - 3 days; Reason: Recheck today's complaints, Continuance of care, Re-evaluation by your physician. Follow up: Biju Huynh; When: 2 - 3 days; Reason: Recheck today's complaints, Re-evaluation by your physician. Problem is new. Symptoms have improved. kb
--- NOTE | 2020-06-24 20:08 | RAD REPORT ---
EXAM DESCRIPTION: RAD - Chest Single View - 06/24/2020 7:33 pm CLINICAL HISTORY: Cough;Chest pain COMPARISON: June 20 TECHNIQUE: AP portable chest image was obtained 06/24/2020 7:33 pm . FINDINGS: Lungs are clear. Heart and vasculature are normal. No measurable pleural effusion and no p neumothorax. No acute bony abnormality seen. No acute aortic findings suspected. IMPRESSION: No acute cardiopulmonary process. No significant change from comparison.
[2020-06-24 20:23] LABS: Barbiturates NEGATIVE (NEGATIVE); Benzodiazepines NEGATIVE (NEGATIVE); Cocaine NEGATIVE (NEGATIVE); METHAMPHETAM NEGATIVE (NEGATIVE); Methadone NEGATIVE (NEGATIVE); Opiates NEGATIVE (NEGATIVE); Phencyclidine NEGATIVE (NEGATIVE); THC Cannibis NEGATIVE (NEGATIVE)
[2020-06-24] MEDS ORDERED: METOPROLOL XL 25 MG TAB PO ONE (20:26)
[2020-06-24 20:27] LABS: Urine Blood NEGATIVE (NEG); Urine Glucose NEGATIVE (NEG); Urine Protein NEGATIVE (NEG); Urine Specific Gravity 1.025 (1.005-1.030)
[2020-06-24 20:52] VITALS: TEMP 98.1
[2020-06-24 20:55] VITALS: BP 124/82; O2SAT 97
--- NOTE | 2020-06-26 11:14 | EKG ---
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
== END 2020-06-24 20:40 | disposition home or self-care (01) ==
LOC: ER 18:09
DX: R07.9 Chest pain, unspecified (principal); F17.220 Nicotine dependence, chewing tobacco, uncomplicated
CPT/HCPCS: 96361; 93005; 85025; 80048; 36415; 80320; 83735; 80329 ×2; 85610; 85379; 80076; 80307 ×8; 85730; 84443; 81003; 84484; 83880; 71045; 96374; 99284; J7030

== ENCOUNTER 2020-08-18 18:52 | Emergency (ER) | payer BC ==
--- OUTSIDE RECORDS SUMMARY | 2020-08-18 18:54 | XMS REPORT | Continuity of Care Document ---
:1985 Author Organization [facility] t Address [address] [place] [address] Care Team Providers Name Role Phone MEREDITH Attending Clinician Unavailable Payers Payer Name Policy Type Policy Effective Date Expiration Date Sour ce Number BCBSBCBS CHOICE [id number] 2019 [place] PPO/FEDERAL 00:00:00 [employer] EMPL [id number] 2019-Presen tPPO Problems This patient has no known problems. Allergies, Adverse Reactions, Alerts This patient has no known allergies or adverse reactions. Social History Social Habit Start Date Stop Date Quantity Comments Source Sex Assigned At Justin shay [facility] Medications This patient has no known medications. [...] Future Scheduled 2020-04-16 INFLUENZA VACCINE [place] [facility] Test 00:00:00 [code = INFLUENZA VACCINE] Encounters Start End Encounter Admission Attending Care Care Encounter Source Date/Time Date/Time Type Type Clinicians Facility Department ID 2020-01-13 2020-01-13 Outpatient MEREDITH [facility] [id number] [place] 00:00:00 00:00:00 GER Niño Method [facility] Results This patient has no known results.
--- OUTSIDE RECORDS SUMMARY | 2020-08-18 18:54 | XMS REPORT | Clinical Summary ---
:1985 Author Organization [facility] [address] [place] [address] Care Team Providers Name Role Phone Unavailable Primary Care Provider Unavailable Allergies Not on File Medications Not on file Active Problems Not on file Encounters Date Type Specialty Care Team Description 01/13/2020 Travel after 08/18/2019 Social History Tobacco Use Types Packs/Day Years [...] are in ear the results section. after 08/18/2019 Results AFB culture (01/13/2020 11:00 AM CDT) AFB culture No growth after 6 weeks of incubation. CALEB SÁNCHEZ isolate Comment: HOSPITAL Specimen Information Specimen Source: Ear Specimen Site: RT EAR Specimen Ear Performing Organization Address City/State/ZIP Code Phon e Number [facility] DEPARTMENT OF PATHOLOGY AND [address] [place], [place] [address] GENOMIC MEDICINE [facility] [address] [place] [id number] Aerobic culture (01/13/2020 11:00 AM CDT) Aerobic culture Aspergillus niger (A) JORGE A GUTHRIE Sebastian isolate Comment: HOSPITAL Specimen Information Specimen Source: Ear Specimen Site: RT EAR Specimen Ear Performing Organization Address [facility] Phon e Number [facility] DEPARTMENT OF PATHOLOGY AND [address] [place] [address] [phone] [address] Gram stain (01/13/2020 11:00 AM CDT) Gram stain isolate No WBC's or organisms seen. JORGE A SÁNCHEZ Comment: HOSPITAL Specimen Information Specimen Source: Ear Specimen Site: RT EAR Specimen Ear Performing Organization Address [facility] Phon e Number [facility] DEPARTMENT OF PATHOLOGY AND [address] [place] [address] [phone] [address] AFB stain (01/13/2020 11:00 AM CDT) Pathologist Sig nature AFB stain No acid fast bacilli (AFB) seen. JORGE A SÁNCHEZ Comment: HOSPITAL Specimen Information Specimen Source: Ear Specimen Site: RT EAR Specimen Ear Performing Organization Address [facility] Phon e Number [facility] DEPARTMENT OF PATHOLOGY AND [address] [place] [address] [phone] [address] Anaerobic culture (01/13/2020 11:00 AM CDT) Anaerobic culture No anaerobic organisms isolated. MIKI SÁNCHEZ isolate Comment: HOSPITAL Specimen Information Specimen Source: Ear Specimen Site: RT EAR Specimen Ear Performing Organization Address [facility] Phon e Number [facility] DEPARTMENT OF PATHOLOGY AND [address] [place] [address] [phone] [address] after 08/18/2019 Advance Directives For more information, please contact: [phone] Type Date Recorded Patient Urban Redevelopment Specialist Explanati on Advance Directives, Living Will and Medical Power of Child Development Consultant
--- NOTE | 2020-08-18 20:12 | ER ---
Nurse's Notes [facility] Name: Andrew Wang Age: 34 yrs Sex: Male : 1985 Arrival Date: 08/18/2020 Time: 18:52 Bed Waiting Private MD: Homero Sánchez Diagnosis: Presentation: 08/18 19:40 Chief complaint: Patient states: Chest pain since Saturday, been getting worse. Seen the ca1 PCP on Saturday, he up my dose on Zoloft. I have been taking g Zoloft for about a month now. He also added Propranolol cause my resting heart rate was no the 90s. Am also taking Xanax for Anxiety. Today's chest pain has been worse and has been all day, I took Xanax and Zoloft, no relief. HR at 100 - 110. Chest pain is just sharp. Coronavirus screen: Client denies travel out of the [place] in the last 14 days. At this time, the client does not indicate any symptoms associated with coronavirus-19. Ebola Screen: Patient negative for fever greater than or equal to 101.5 degrees Fahrenheit, and additional compatible Ebola Virus Disease symptoms Patient denies exposure to infectious person. Patient denies travel to an Ebola-affected area in the 21 days before illness onset. No symptoms or risks identified at this time. Initial Sepsis Screen: Does the patient meet any 2 criteria? No. Patient's initial sepsis screen is negative. Does the patient have a suspected source of infection? No. Patient's initial sepsis screen is negative. Risk Assessment: Do you want to hurt yourself or someone else? Patient reports no desire to harm self or others. Onset of symptoms was August 18, 2020. 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 - Social history:: Smoking status: Patient reports use of chewing tobacco. Patient denies any tobacco usage or history of. Assessment: 20:10 Reassessment: Reassessment: Pt notified of wait time. states, "I will just go to [address] Vital Signs: 19:40 BP 116 / 85; Pulse 85; Resp 16 S; Temp 98.1(TE); Pulse Ox 99% on R/A; Weight 92.99 kg ca1 (R); Height 5 ft. 10 in. (177.80 cm) (R); Pain 7/10; 19:40 Body Mass Index 29.41 (92.99 kg, 177.80 cm) ca1 ED Course: 18:52 Patient arrived in ED. ag5 18:52 Homero Sánchez MD is Private Physician. ag5 19:45 Triage completed. ca1 19:46 Arm band placed on right wrist. ca1 20:00 EKG done, by ED staff, reviewed by Renan Larsen MD. ca1 Administered Medications: No medications were administered Outcome: 20:11 Patient left the ED. [facility] Signatures: Rox Andrews RN RN ca1 Kanwal Mcpherson ag Corrections: (The following items were deleted from the chart) 20:10 20:10 Reassessment: [place] [id number]
--- NOTE | 2020-08-19 13:39 | EKG ---
Test Date: 2020-08-18 Test Time: 19:59:50 Park Worker Supervisor: JANETH MEASUREMENT RESULTS: Intervals: Rate: 74 [place]: 152 QRSD: 78 QT: 344 QTc: 381 Vera: P: 20 [place]: 152 QRS: 17 T: 31 INTERPRETIVE STATEMENTS: Normal sinus rhythm Normal ECG Compared to ECG 06/24/2020 18:56:56 No significant changes Electronically Signed On 08-19-20 13:37:03 [employer] by Chacho Ivy
== END 2020-08-18 20:11 | disposition left against medical advice (07) ==
LOC: ER 18:52
DX: Z53.21 Procedure and treatment not carried out due to patient leaving prior to being seen by health care provider (principal)
CPT/HCPCS: 93005; 99282

== ENCOUNTER 2021-05-04 17:39 | Emergency (ER) | payer BC ==
--- OUTSIDE RECORDS SUMMARY | 2021-05-04 17:41 | XMS REPORT | Continuity of Care Document ---
:1985 Author Organization [facility] t Address [address] [place] [address] Care Team Providers Name Role Phone MEREDITH Attending Clinician Unavailable Problems This patient has no known problems. Allergies, Adverse Reactions, Alerts This patient has no known allergies or adverse reactions. Social History Social Habit Start Date Stop Date Quantity Comments Source Sex Assigned At [birth year] [facility] 00:00:00 00:00:00 Smoking Status Start Date Stop Date Source Unknown if ever smoked [facility] Medications This patient has no known medications. Procedures This patient has no known procedures. Plan of Care Planned Activity Planned Date Details Comments Source Future Scheduled Test COVID-19 VACCINE (1) [facility] [code = COVID-19 VACCINE (1)] Future Scheduled Test Hepatitis C screening [facility] (procedure) [code = 441087299] Future Scheduled Test INFLUENZA VACCINE [facility] [code = INFLUENZA VACCINE] Encounters Start End Encounter Admission Attending Care Care Encounter Source Date/Time Date/Time Type Type Clinicians Facility Department ID 2020-01-13 2020-01-13 Outpatient MEREDITH [facility] [id number] 00:00:00 00:00:00 JESSICA [id number] Results This patient has no known results.
[2021-05-04 19:14] LABS: Urine Blood Negative (Negative); Urine Glucose Negative (Negative); Urine Protein Negative (Negative); Urine Specific Gravity 1.025 (1.005-1.030); Urine pH 5.5 (5.0-7.0)
[2021-05-04 19:38] LABS: Absolute Lymphocytes (CBC) 2.5 K/uL (0.7-4.9); Basophils % 0.6 % (0-1.3); Hematocrit 44.9 % (39.6-49.0); Lymphocytes % 28.7 % (15.3-44.8); MPV 9.1 fL (7.6-11.3); Protime INR 0.97; RBC Red Blood Cell Count 4.91 M/uL (4.33-5.43)
[2021-05-04 19:41] LABS: ALT/SGPT 23 U/L (12-78); AST/SGOT 12 U/L (15-37); Albumin 4.2 g/dL (3.4-5.0); Alkaline Phosphatase 78 U/L (45-117); BUN Blood Urea Nitrogen 15 mg/dL (7-18); Bicarbonate 26 mmol/L (21-32); Bilirubin Direct < 0.1 mg/dL (0-0.2); Bilirubin Total 0.2 mg/dL (0.2-1.0); Glucose Level 90 mg/dL (74-106); Magnesium 2.4 mg/dL (1.8-2.4); NT PRO-BNP 12 pg/mL (<125); Potassium 4.1 mmol/L (3.5-5.1); Sodium Level 140 mmol/L (136-145); Troponin (Emerg Dept Use Only) < 0.02 ng/mL (0.0-0.045)
--- NOTE | 2021-05-04 20:13 | RAD REPORT ---
EXAM DESCRIPTION: RAD - Chest Single View - 05/04/2021 7:58 pm CLINICAL HISTORY: CHEST PAIN Chest pain. COMPARISON: Chest Single View dated 06/24/2020; Chest Single View dated 06/20/2020 FINDINGS: Portable technique limits examination quality. Mild interstitial pulmonary opacities are present bilaterally. The heart is normal in size. No displa farooq fractures. IMPRESSION: Mild interstitial lung opacities are present bilaterally which may represent a viral inf ection or bronchitis.
[2021-05-04] MEDS ORDERED: KETOROLAC 30 MG/ML INJ ONE (21:41)
--- NOTE | 2021-05-04 22:29 | EDPHYS ---
Physician Documentation [facility] Name: Andrew Wang Age: 35 yrs Sex: Male : 1985 Arrival Date: 05/04/2021 Time: 17:44 Bed 27 Private MD: ED Physician Natanael Del Real HPI: 05/04 21:31 This 35 yrs old Male presents to ER via Ambulatory with complaints of Chest sp3 Pain. 21:31 -year-old male with a history of anxiety presents with chest pain for approximately 4 sp3 to 5 days. Patient states that he has had multiple episodes of this in the past including last year where he was diagnosed with anxiety and put on Zoloft and as needed Xanax. Pain is described as center chest and constant without radiation including to the back. Patient denies shortness of breath, fever, cough, URI symptoms, epigastric pain, abdominal pain, nausea, vomiting, diarrhea, back pain, syncope, near syncope, neuro symptoms, rash, known COVID-19 contacts, travel history, or any other ROS at this time. Patient has not received the COVID-19 vaccine.. Historical: - Allergies: 18:52 No Known Allergies; kg - Home Meds: 18:52 Xanax Oral [Active]; kg 18:52 Zoloft 100 mg oral tab once daily [Active]; clonidine HCl 0.1 mg Oral tab [Active]; kg - PMHx: 18:52 Anxiety; pinched nerve neck; kg - PSHx: 18:52 None; kg - Immunization history:: Adult Immunizations not up to date, Client reports having NOT received the Covid vaccine. - Social history:: Smoking status: Patient reports use of chewing tobacco. Patient uses alcohol, occasionally. ROS: 21:33 Constitutional: Negative for fever, chills, and weight loss, Eyes: Negative for injury, sp3 pain, redness, and discharge, ENT: Negative for injury, pain, and discharge, Neck: Negative for injury, pain, and swelling, Respiratory: Negative for shortness of breath, cough, wheezing, and pleuritic chest pain, Abdomen/GI: Negative for abdominal pain, nausea, vomiting, diarrhea, and constipation, Back: Negative for injury and pain, MS/Extremity: Negative for injury and deformity, Skin: Negative for injury, rash, and discoloration, Neuro: Negative for headache, weakness, numbness, tingling, and seizure, Psych: Negative for depression, anxiety, suicide ideation, homicidal ideation, and hallucinations, Allergy/Immunology: Negative for hives, rash, and allergies, Endocrine: Negative for neck swelling, polydipsia, polyuria, polyphagia, and marked weight changes. 21:33 Cardiovascular: Positive for chest pain, Negative for edema, orthopnea, palpitations, paroxysmal nocturnal dyspnea. 21:33 All other systems are negative. Exam: 21:34 Constitutional: This is a well developed, well nourished patient who is awake, alert, sp3 and in no acute distress. Head/Face: Normocephalic, atraumatic. Eyes: Pupils equal round and reactive to light, extra-ocular motions intact. Lids and lashes normal. Conjunctiva and sclera are non-icteric and not injected. Cornea within normal limits. Periorbital areas with no swelling, redness, or edema. ENT: Nares patent. No nasal discharge, no septal abnormalities noted. External auditory canals are clear. Oropharynx with no redness, swelling, or masses, exudates, or evidence of obstruction, uvula midline. Mucous membranes moist. Neck: Trachea midline, no thyromegaly or masses palpated, and no cervical lymphadenopathy. Supple, full range of motion without nuchal rigidity, or vertebral point tenderness. No Meningismus. Chest/axilla: Normal chest wall appearance and motion. Nontender with no deformity. No lesions are appreciated. Cardiovascular: Regular rate and rhythm with a normal S1 and S2. No gallops, murmurs, or rubs. Normal PMI, no JVD. No pulse deficits. Respiratory: Lungs have equal breath sounds bilaterally, clear to auscultation and percussion. No rales, rhonchi or wheezes noted. No increased work of breathing, no retractions or nasal flaring. Abdomen/GI: Soft, non-tender, with normal bowel sounds. No distension or tympany. No guarding or rebound. No evidence of tenderness throughout. Back: No spinal tenderness. No costovertebral tenderness. Full range of motion. Skin: Warm, dry with normal turgor. Normal color with no rashes, no lesions, and no evidence of cellulitis. MS/ Extremity: Pulses equal, no cyanosis. Neurovascular intact. Full, normal range of motion. Neuro: Awake and alert, GCS 15, oriented to person, place, time, and situation. Cranial nerves II-XII grossly intact. Motor strength 5/5 in all extremities. Sensory grossly intact. Cerebellar exam normal. Normal gait. Psych: Awake, alert, with orientation to person, place and time. Behavior, mood, and affect are within normal limits. 21:34 ECG was reviewed by the Attending Physician. EKG demonstrates normal sinus rhythm at 93 bpm with normal intervals, normal QRS, normal axis, normal ST/T-segments. Vital Signs: 18:48 BP 117 / 90; Pulse 94; Resp 20; Temp 98.0(O); Pulse Ox 96% on R/A; Weight 97.52 kg (R); kg Height 5 ft. 10 in. (177.80 cm) (R); Pain 4/10; 21:29 BP 122 / 95; Pulse 74; Resp 16; Pulse Ox 99% on R/A; vg1 22:42 BP 123 / 85; Pulse 87; Resp 18; Pulse Ox 99% on R/A; lp1 18:48 Body Mass Index 30.85 (97.52 kg, 177.80 cm) kg MDM: 20:51 Patient medically screened. sp3 21:34 Data reviewed: vital signs, nurses notes, old medical records, lab test result(s), EKG, sp3 radiologic studies. ED course: 29-year-old male with chest pain. I am not highly suspicious for acute coronary syndrome, pulmonary embolism, aortic dissection, vascular compromise, sepsis or shock. X-ray does demonstrate bilateral bronchitis/viral pattern. We will check a COVID-19 nasopharyngeal swab to screen for Covid. Patient will be discharged either way. Toradol 30 mg IV was given.. 22:28 ED course: Pain test is negative. Will discharge patient at this time. Patient is sp3 stable. Pain is improved with Toradol.. 05/04 18:57 Order name: Basic Metabolic Panel; Complete Time: 20:53 kg 05/04 18:57 Order name: CBC with Diff; Complete Time: 20:53 kg 19 18:57 Order name: LFT's; Complete Time: 20:53 kg 19 18:57 Order name: Magnesium; Complete Time: 20:53 kg 05/04 18:57 Order name: NT PRO-BNP; Complete Time: 20:53 kg 05/04 18:57 Order name: PT-INR; Complete Time: 20:53 kg 05/04 18:57 Order name: Troponin (emerg Dept Use Only); Complete Time: 20:53 kg 05/04 18:57 Order name: XRAY Chest (1 view); Complete Time: 20:53 kg 05/04 18:57 Order name: EKG; Complete Time: 18:59 kg 05/04 19:13 Order name: Urine Dipstick-Ancillary; Complete Time: 20:53 EDMS 05/04 20:55 Order name: COVID-19 : Document "Date of Symptom Onset" if Symptomatic. sp3 05/04 22:33 Order name: SARS-COV-2 RT PCR EDMS 05/04 18:57 Order name: Cardiac monitoring; Complete Time: 21:21 kg 05/04 18:57 Order name: EKG - Nurse/Tech; Complete Time: 21:21 kg 05/04 18:57 Order name: IV Saline Lock; Complete Time: 21:21 kg 05/04 18:57 Order name: Labs collected and sent; Complete Time: 21:21 kg 05/04 18:57 Order name: O2 Per Protocol; Complete Time: 21:21 kg 05/04 18:57 Order name: O2 Sat Monitoring; Complete Time: 21:21 kg Administered Medications: 21:21 Drug: Ketorolac 30 mg Route: IVP; Site: left antecubital; vg1 Disposition Summary: 05/04/21 22:29 Discharge Ordered Location: Home sp3 Condition: Stable sp3 Diagnosis - Chest pain, unspecified sp3 Followup: sp3 - With: Private Physician - When: - Reason: Re-evaluation by your physician Discharge Instructions: - Discharge Summary Sheet sp3 - Nonspecific Chest Pain, Adult sp3 Forms: - Medication Reconciliation Form sp3 - Thank You Letter sp3 - Antibiotic Education sp3 - Prescription Opioid Use sp3 Signatures: Dispatcher [employer] EDMS Ayse Millan, RN RN vg1 Sweetie aGona, RN RN kg Natanael Del Real sp3 Corrections: (The following items were deleted from the chart) 18:53 18:52 Home Meds: Zoloft Oral; kg kg 21:41 20:55 CORONAVIRUS ordered. EDMS EDMS
--- NOTE | 2021-05-04 22:29 | ER ---
Nurse's Notes [facility] Name: Andrew Wang Age: 35 yrs Sex: Male : 1985 Arrival Date: 05/04/2021 Time: 17:44 Bed 27 Private MD: Diagnosis: Chest pain, unspecified Presentation: 05/04 18:48 Chief complaint: Patient states: Chest pain x 3 days that has gradually gotten worse. kg Pt stated it started in the left side of the chest and moved to center of chest. Pt stated he has had a similar problem before and they diagnosed him with anxiety and started him on Cymbalta. Pt stated, " I also have sharp pain in the back of my head that have been coming and going since my first episode last year.". Coronavirus screen: Client denies travel out of the [place] in the last 14 days. At this time, unable to obtain information related to travel outside the [place] At this time, the client does not indicate any symptoms associated with coronavirus-19. Ebola Screen: Patient negative for fever greater than or equal to 101.5 degrees Fahrenheit, and additional compatible Ebola Virus Disease symptoms Patient denies exposure to infectious person. Patient denies travel to an Ebola-affected area in the 21 days before illness onset. Initial Sepsis Screen: Does the patient meet any 2 criteria? No. Patient's initial sepsis screen is negative. Does the patient have a suspected source of infection? No. Patient's initial sepsis screen is negative. Risk Assessment: Do you want to hurt yourself or someone else? Patient reports no desire to harm self or others. Onset of symptoms was May 01, 2021. 18:48 Method Of Arrival: Ambulatory kg 18:48 Acuity: ANUSHKA 3 kg Triage Assessment: 18:52 General: Appears in no apparent distress. Behavior is calm, cooperative, appropriate kg for age, quiet. Pain: Complains of pain in mid-sternal area Pain currently is 4 out of 10 on a pain scale. at worst was 7 out of 10 on a pain scale. Quality of pain is described as pressure. Cardiovascular: Reports chest pain, shortness of breath. Historical: - Allergies: 18:52 No Known Allergies; kg - Home Meds: 18:52 Xanax Oral [Active]; kg 18:52 Zoloft 100 mg oral tab once daily [Active]; clonidine HCl 0.1 mg Oral tab [Active]; kg - PMHx: 18:52 Anxiety; pinched nerve neck; kg - PSHx: 18:52 None; kg - Immunization history:: Adult Immunizations not up to date, Client reports having NOT received the Covid vaccine. - Social history:: Smoking status: Patient reports use of chewing tobacco. Patient uses alcohol, occasionally. Screenin:57 Abuse screen: Denies threats or abuse. Denies injuries from another. Nutritional kg screening: No deficits noted. Tuberculosis screening: No symptoms or risk factors identified. Fall Risk None identified. Assessment: 21:30 General: Appears in no apparent distress. comfortable, Behavior is calm, cooperative. vg1 Pain: Complains of pain in mid-sternal area Pain does not radiate. Pain currently is 6 out of 10 on a pain scale. Pain began 2-3 days ago. Neuro: Level of Consciousness is awake, alert, obeys commands, Oriented to person, place, time, situation. Cardiovascular: Patient's skin is warm and dry. Respiratory: Airway is patent Respiratory effort is even, unlabored. GI: Patient currently denies nausea, vomiting. : No signs and/or symptoms were reported regarding the genitourinary system. EENT: No signs and/or symptoms were reported regarding the EENT system. Derm: Skin is intact, is healthy with good turgor. 22:30 Reassessment: Patient appears in no apparent distress at this time. Patient is alert, lp1 oriented x 3, equal unlabored respirations, skin warm/dry/pink. Dr. duvall at bedside to discuss plan of care and results. Vital Signs: 18:48 BP 117 / 90; Pulse 94; Resp 20; Temp 98.0(O); Pulse Ox 96% on R/A; Weight 97.52 kg (R); kg Height 5 ft. 10 in. (177.80 cm) (R); Pain 4/10; 21:29 BP 122 / 95; Pulse 74; Resp 16; Pulse Ox 99% on R/A; vg1 22:42 BP 123 / 85; Pulse 87; Resp 18; Pulse Ox 99% on R/A; lp1 18:48 Body Mass Index 30.85 (97.52 kg, 177.80 cm) kg ED Course: 17:44 Patient arrived in ED. mr 18:52 Triage completed. kg 18:52 Arm band placed on right wrist. kg 18:57 Patient has correct armband on for positive identification. kg 19:08 Inserted saline lock: 20 gauge in left antecubital area, using aseptic technique. kg 19:58 XRAY Chest (1 view) In Process Unspecified. EDMS 20:50 Natanael Duvall is Attending Physician. sp3 21:16 Ayse Milaln, RN is Primary Nurse. vg1 21:29 Patient maintains SpO2 saturation greater than 95% on room air. vg1 21:29 No provider procedures requiring assistance completed. vg1 21:31 manager monitoring on. Pulse ox on. NIBP on. vg1 22:20 Report received from ELAINE Tavera. lp1 22:42 IV discontinued, No redness/swelling at site. Pressure dressing applied. lp1 Administered Medications: 21:21 Drug: Ketorolac 30 mg Route: IVP; Site: left antecubital; vg1 Outcome: 22:29 Discharge ordered by MD. sp3 22:42 Discharged to home ambulatory. lp1 22:42 Condition: good 22:42 Discharge instructions given to patient, Instructed on discharge instructions, follow up and referral plans. Demonstrated understanding of instructions, follow-up care. 22:42 Patient left the ED. lp1 Signatures: Dispatcher [employer] [facility] ChuaZahra tee mr FarrarGloria, RN RN lp1 Ayse Millan, RN RN vg1 Sweetie Gaona, ELAINE RN kg Natanael Duvall sp3 Corrections: (The following items were deleted from the chart) 18:53 18:52 Home Meds: Zoloft Oral; kg kg 18:56 18:48 Chief complaint: Patient states: Chest pain x 3 days that has gradually gotten kg worse. Pt stated it started in the left side of the chest and moved to center of chest. Pt stated he has had a similar problem before and they diagnosed him with anxiety and started him on Cymbalta. kg
[2021-05-05 01:15] VITALS: TEMP 98
[2021-05-05 01:17] VITALS: O2SAT 99
[2021-05-05 01:19] VITALS: BP 123/85
--- NOTE | 2021-05-05 11:10 | EKG ---
Test Date: 2021-05-04 Test Time: 19:02:09 Parent Aide: RACHEL MEASUREMENT RESULTS: Intervals: Rate: 93 HI: 156 QRSD: 76 QT: 326 QTc: 405 [place]: P: 32 HI: 156 QRS: 26 T: 54 INTERPRETIVE STATEMENTS: Normal sinus rhythm Normal ECG Compared to ECG 08/18/2020 19:59:50 No significant changes Electronically Signed On 05-05-21 11:07:37 CDT by Chacho Ivy
== END 2021-05-04 22:42 | disposition home or self-care (01) ==
LOC: ER 17:39
DX: R07.9 Chest pain, unspecified (principal); F41.9 Anxiety disorder, unspecified; Z20.822 Contact with and (suspected) exposure to COVID-19; F17.220 Nicotine dependence, chewing tobacco, uncomplicated
CPT/HCPCS: 93005; 85025; 80048; 36415; 83735; 85610; 80076; 81003; 84484; 83880; 71045; 96374; 99285; U0003

== ENCOUNTER 2022-03-30 15:57 | Emergency (ER) | payer BC ==
[2022-03-30] MEDS ORDERED: HYDROCODONE/APAP 7.5/325 MG TAB ONE ×2 (17:05→19:27)
--- NOTE | 2022-03-30 18:37 | RAD REPORT ---
EXAM DESCRIPTION: RAD - Lumbar Spine 3 Views - 03/30/2022 6:25 pm CLINICAL HISTORY: Back pain FINDINGS: No fracture or dislocation is seen. No bone or joint abnormality noted
--- NOTE | 2022-03-30 19:07 | ER ---
Nurse's Notes [facility] Name: Andrew Wang Age: 36 yrs Sex: Male : 1985 Arrival Date: 03/30/2022 Time: 15:58 Bed 12 Private MD: Homero Sánchez Diagnosis: Coronavirus infection, unspecified Presentation: 03/30 16:49 Chief complaint: Patient states: woke up this morning with headache, body aches, iw chills, back pain. Coronavirus screen: Client presents with at least one sign or symptom that may indicate coronavirus-19. Ebola Screen: Patient negative for fever greater than or equal to 101.5 degrees Fahrenheit, and additional compatible Ebola Virus Disease symptoms Patient denies exposure to infectious person. Patient denies travel to an Ebola-affected area in the 21 days before illness onset. No symptoms or risks identified at this time. Initial Sepsis Screen: Does the patient meet any 2 criteria? No. Patient's initial sepsis screen is negative. Does the patient have a suspected source of infection? No. Patient's initial sepsis screen is negative. Risk Assessment: Do you want to hurt yourself or someone else? Patient reports no desire to harm self or others. Onset of symptoms was March 30, 2022. 16:49 Method Of Arrival: Ambulatory iw 16:49 Acuity: ANUSHKA 3 iw Historical: - Allergies: 16:50 No Known Allergies; iw - PMHx: 16:50 Anxiety; pinched nerve neck; iw Screenin:24 Abuse screen: Denies threats or abuse. Denies injuries from another. Nutritional lg3 screening: No deficits noted. Tuberculosis screening: No symptoms or risk factors identified. Fall Risk None identified. Assessment: 19:24 General: Appears in no apparent distress. uncomfortable, Behavior is calm, cooperative. lg3 Pain: Complains of pain in back. Neuro: No deficits noted. Level of Consciousness is awake, alert, obeys commands, Oriented to person, place, time, situation. Cardiovascular: No deficits noted. Capillary refill < 3 seconds Clubbing of nail beds is absent JVD is absent Patient's skin is warm and dry. Respiratory: Reports cough that is Airway is patent Trachea midline Respiratory effort is even, unlabored, Respiratory pattern is regular, symmetrical, Breath sounds are clear bilaterally. GI: No deficits noted. No signs and/or symptoms were reported involving the gastrointestinal system. Abdomen is round non-distended, Bowel sounds present X 4 quads. : No deficits noted. No signs and/or symptoms were reported regarding the genitourinary system. EENT: No deficits noted. No signs and/or symptoms were reported regarding the EENT system. Derm: No deficits noted. No signs and/or symptoms reported regarding the dermatologic system. Skin is intact, is healthy with good turgor, Skin is dry, Skin temperature is warm. Musculoskeletal: No deficits noted. Reports generalized body aches. Vital Signs: 16:50 Pulse 115; Resp 19 S; Temp 98.5; Pulse Ox 96% on R/A; iw 16:51 BP 108 / 74; iw 19:18 Temp 98.8(O); lg3 19:27 BP 114 / 82; Pulse 94; Resp 18 S; Pulse Ox 98% on R/A; lg3 [place] Coma Score: 23:53 Eye Response: spontaneous(4). Verbal Response: oriented(5). Motor Response: obeys kb commands(6). Total: 15. ED Course: 15:58 Patient arrived in ED. mr 15:59 Homero Sánchez MD is Private Physician. mr 16:45 Isabel Ray[facility] IR[facility]C [facility] kb 16:45 Polo Carolina MD is Attending Physician. kb 16:49 Triage completed. iw 16:50 Arm band placed on. iw 18:23 Lumbar Spine (3 Views) XRAY In Process Unspecified. EDMS 19:18 Jackie Sotelo, RN is Primary Nurse. lg3 19:24 Patient has correct armband on for positive identification. Bed in low position. Call lg3 light in reach. Side rails up X 1. Client placed on continuous cardiac and pulse oximetry monitoring. NIBP monitoring applied. Door closed. Noise minimized. 19:24 No provider procedures requiring assistance completed. Patient did not have IV access lg3 during this emergency room visit. Administered Medications: 17:20 Drug: [place] (HYDROcodone-acetaminophen) (7.5 mg-325 mg) 1 tabs Route: PO; iw 19:24 Follow up: Response: No adverse reaction lg3 19:21 Drug: Ibuprofen 800 mg Route: PO; lg3 19:21 Follow up: Response: No adverse reaction lg3 Medication: 19:24 VIS not applicable for this client. lg3 Outcome: 19:07 Discharge ordered by MD. bowie 19:24 Discharged to home ambulatory. lg3 19:24 Condition: stable 19:24 Discharge instructions given to patient, Instructed on discharge instructions, Demonstrated understanding of instructions. 19:27 Patient left the ED. lg3 Signatures: Dispatcher [employer] EDMD Isabel Ray, SHARI SOLIS-Zahra Murray mr Marilee Reed, RN RN Jackie Griffin RN RN lg3
--- NOTE | 2022-03-30 19:07 | EDPHYS ---
Physician Documentation [facility] Name: Andrew Wang Age: 36 yrs Sex: Male : 1985 Arrival Date: 03/30/2022 Time: 15:58 Bed 12 Private MD: Homero Sánchez ED Physician Polo Carolina HPI: 03/30 23:57 This 36 yrs old Male presents to ER via Ambulatory with complaints of Low Back Pain, kb Headache, Dizziness. 23:58 The patient or guardian reports flu symptoms, low-grade fever, myalgias. Onset: The kb symptoms/episode began/occurred today. Severity of symptoms: At their worst the symptoms were moderate, in the emergency department the symptoms are unchanged. Modifying factors: The symptoms are alleviated by nothing, the symptoms are aggravated by nothing. Associated signs and symptoms: Pertinent positives: fever. The patient has not experienced similar symptoms in the past. The patient has not recently seen a physician. Pt reports low back pain for a while. Today woke up with fever, chills, bodyaches and headache. Historical: - Allergies: 16:50 No Known Allergies; iw - PMHx: 16:50 Anxiety; pinched nerve neck; iw ROS: 23:57 Respiratory: Negative for shortness of breath, cough, wheezing, and pleuritic chest kb pain. 23:57 Constitutional: Positive for body aches, chills, malaise. 23:57 Back: Positive for pain with movement, of the lumbar area. 23:57 Neuro: Positive for headache. 23:57 All other systems are negative. Exam: 23:54 Constitutional: This is a well developed, well nourished patient who is awake, alert, kb and in no acute distress. Head/Face: Normocephalic, atraumatic. ENT: Moist Mucous membranes Cardiovascular: Regular rate and rhythm with a normal S1 and S2. No gallops, murmurs, or rubs. No pulse deficits. Respiratory: Respirations even and unlabored. No increased work of breathing. Talking in full sentences Abdomen/GI: Soft, non-tender. No distention Skin: Warm, dry with normal turgor. Normal color. MS/ Extremity: Pulses equal, no cyanosis. Neurovascular intact. Full, normal range of motion. Neuro: Awake and alert, GCS 15, oriented to person, place, time, and situation. Moves all extremities. Normal gait. Psych: Awake, alert, with orientation to person, place and time. Behavior, mood, and affect are within normal limits. 23:54 Back: pain, that is moderate, of the lumbar area. Vital Signs: 16:50 Pulse 115; Resp 19 S; Temp 98.5; Pulse Ox 96% on R/A; iw 16:51 BP 108 / 74; iw 19:18 Temp 98.8(O); lg3 19:27 BP 114 / 82; Pulse 94; Resp 18 S; Pulse Ox 98% on R/A; lg3 [place] Coma Score: 23:53 Eye Response: spontaneous(4). Verbal Response: oriented(5). Motor Response: obeys kb commands(6). Total: 15. MDM: 16:55 Patient medically screened. kb 23:53 Data reviewed: vital signs, nurses notes. Data interpreted: Pulse oximetry: on room air kb is 98 %. Interpretation: normal. Counseling: I had a detailed discussion with the patient and/or guardian regarding: the historical points, exam findings, and any diagnostic results supporting the discharge/admit diagnosis, lab results, radiology results, the need for outpatient follow up, a family practitioner, to return to the emergency department if symptoms worsen or persist or if there are any questions or concerns that arise at home. 03/30 16:54 Order name: Flu; Complete Time: 17:31 kb 03/30 16:54 Order name: COVID-19 SARS RT PCR (Document "Date of Onset" if Symptomatic); Complete kb Time: 19:04 03/30 16:54 Order name: Lumbar Spine (3 Views) XRAY; Complete Time: 18:40 kb 03/30 16:54 Order name: Urine Dipstick-Ancillary (obtain specimen) kb Administered Medications: 17:20 Drug: [place] (HYDROcodone-acetaminophen) (7.5 mg-325 mg) 1 tabs Route: PO; iw 19:24 Follow up: Response: No adverse reaction lg3 19:21 Drug: Ibuprofen 800 mg Route: PO; lg3 19:21 Follow up: Response: No adverse reaction lg3 Disposition Summary: 03/30/22 19:07 Discharge Ordered Location: Home kb Condition: Stable kb Diagnosis - Coronavirus infection, unspecified kb Followup: kb - With: Emergency Department - When: As needed - Reason: Worsening of condition Followup: kb - With: Private Physician - When: 2 - 3 days - Reason: Recheck today's complaints, Continuance of care, Re-evaluation by your physician Discharge Instructions: - Discharge Summary Sheet kb - Viral Respiratory Infection, [id number] kb - COVID-19 kb Forms: - Medication Reconciliation Form kb - Thank You Letter kb - Antibiotic Education kb - Prescription Opioid Use kb Addendum: 04/01/2022 13:52 Co-signature as Attending Physician, Polo Carolina MD I agree with the assessment and c echevarria plan of care. Signatures: Dispatcher [employer] EDIsabel Arnett, MERCHANDISE COORDINATOR-C MERCHANDISE COORDINATOR-Polo Burnett MD MD cha Williams, Irene, RN RN Jackie Griffin RN RN lg3
[2022-03-30] MEDS ORDERED: IBUPROFEN 400 MG TAB ONE (19:27)
[2022-03-30 19:40] VITALS: TEMP 98.8
[2022-03-30 19:42] VITALS: BP 114/82; O2SAT 98
== END 2022-03-30 19:27 | disposition home or self-care (01) ==
LOC: ER 15:57
DX: U07.1 COVID-19 (principal); M54.50 Low back pain, unspecified
CPT/HCPCS: 87804 ×2; 72100; 99283; U0003

== ENCOUNTER 2022-04-07 15:22 | Emergency (ER) | payer BC ==
--- OUTSIDE RECORDS SUMMARY | 2022-04-07 15:25 | XMS REPORT | Continuity of Care Document ---
:1985 Author Organization [facility] t Address [address] [place] [address] Care Team Providers Name Role Phone PCP, DOES NOT HAVE A Primary Care Physician Unavailable REKHA Attending Clinician Unavailable Alice LONG III Attending Clinician Unavailable Jesus SOLIS Attending Clinician Alice Long MD Attending Clinician Chip BALBUENAP Attending Clinician Morgan HENRY T Attending Clinician Unavailable Deb PEGUERO Attending Clinician DEB Attending Clinician Unavailable Payers Payer Name Policy Type Policy Number Effective Date Expiration Date S dominick [facility] [id number] 2021 00:00:00 Problems Condition Condition Condition Status Onset Resolution Last Treating Co mments Source Name Details Category Date Date Treatment Clinician Date No known No known Disease Unive rs active active ity of problems problems [facility] Allergies, Adverse Reactions, Alerts Allergy Allergy Status Severity Reaction(s) Onset Inactive Treating Comm ents Source Name Type Date Date Clinician NO KNOWN Drug Active Univers ALLERGIE Class ity of S [facility] Social History Social Habit Start Date Stop Date Quantity Comments Source History of Snuff User [facility] tobacco use [facility] Branc h Exposure to Not sure [facility] SARS-CoV-2 [facility] (event) Tobacco use and 2021-06-18 2021-06-18 Current user [facility] exposure 00:00:00 00:00:00 Medical Branch [facility] [birth year] [facility] 00:00:00 00:00:00 Medical Branch Smoking Status Start Date Stop Date Source Unknown if ever smoked [facility] Never smoker [facility] Medical Branch Medications Ordered Filled Start Stop Current Ordering Indication Dosage Frequency Signature Comments Components Source Medication Medication Date Date Medication? Clinician (SIG) Name Name neomycin-po Yes [id number] 3[drp] Place 3 Univers lymyxin-hyd 1-05 Drops in ity of rocortisone 00:00: right ear [place] otic 00 4 (four) Medical solution times Branch daily. amoxicillin 2021- No [id number] 1{tbl} Take 1 Univers -clavulanat 1-05 01-13 tablet by it y of e 875-125 00:00: 05:59 [place] mg per 00 :00 (two) Medical tablet times Branch daily for 7 days. amoxicillin 2020-09 Yes Univer s 500 mg 2-29 ity of capsule 00:00: [place] 00 Medical Branch albuterol 2020-09 Yes INHALE 2 Univ ers 90 2-20 PUFFS BY ity of mcg/actuati 00:00: MOUTH [place] on inhaler 00 EVERY 4 Medica l HOURS Branch NEEDED fluticasone 2020-09- No [id number] 1{spray Univers propionate 0-03 10-03 } ity of 50 16:30: 15:33 [place] mcg/actuati 00 :51 Medical on nasal Branch spray 1 [place] benzonatate 2020-09 Yes [id number] 100mg Take 1 Univers (TESSALON 0-03 capsule by ity of PERLES) 100 00:00: mouth 3 [place] as mg capsule 00 (three) Medica l times Branch daily as needed for Cough. fluticasone 2020-09 Yes [id number] 1{spray Use 1 Univers propionate 0-03 } [place] in ity o f (FLONASE 00:00: each [place] ALLERGY 00 nostril Medical RELIEF) 50 daily. Branch mcg/actuati on nasal spray benzonatate 2020-09 Yes [id number] 100mg Take 1 Univers (TESSALON 0-03 capsule by ity of PERLES) 100 00:00: mouth 3 [place] as mg capsule 00 (three) Medica l times Branch daily as needed for Cough. fluticasone 2020-09 Yes [id number] 1{spray Use 1 Univers propionate 0-03 } [place] in ity o f (FLONASE 00:00: each [place] ALLERGY 00 nostril Medical RELIEF) 50 daily. Branch mcg/actuati on nasal spray benzonatate 2020-09 Yes [id number] 100mg Take 1 Univers (TESSALON 0-03 capsule by itethan PERLCazoodle) 100 00:00: mouth 3 [place] as mg capsule 00 (three) Medica l times Branch daily as needed for Cough. fluticasone 2020-09 Yes [id number] 1{spray Use 1 Univers propionate 0-03 } [place] in ity o f (FLONASE 00:00: each [place] ALLERGY 00 nostril Medical RELIEF) 50 daily. Branch mcg/actuati on nasal spray benzonatate 2020-09 Yes [id number] 100mg Take 1 Univers (TESSALON 0-03 capsule by itethan ALEYDA) 100 00:00: mouth 3 [place] as mg capsule 00 (three) Medica l times Branch daily as needed for Cough. fluticasone 2020-09 Yes [id number] 1{spray Use 1 Univers propionate 0-03 } [place] in ity o f (FLONASE 00:00: each [place] ALLERGY 00 nostril Medical RELIEF) 50 daily. Branch mcg/actuati on nasal spray SERTraline Yes 100mg Take 100 Un [place] 100 mg 9-04 mg by ity of tablet 00:00: mouth [place] 00 daily. Medical Branch SERTraline Yes 100mg Take 100 Un [place] 100 mg 9-04 mg by ity of tablet 00:00: mouth [place] 00 daily. Medical Branch SERTraline Yes 100mg Take 100 Un [place] 100 mg 9-04 mg by ity of tablet 00:00: mouth [place] 00 daily. Medical Branch SERTraline Yes 100mg Take 100 Un [place] 100 mg 9-04 mg by ity of tablet 00:00: mouth [place] 00 daily. Medical Branch Vital Signs Vital Name Observation Time Observation Value Comments Source Systolic blood 2021-09-20 23:21:00 112 mm[Hg] Univer sity [facility] Diastolic blood 2021-09-20 23:21:00 60 mm[Hg] [facility] Heart rate 2021-09-20 23:21:00 113 /min [facility] Body temperature 2021-09-20 23:21:00 36.39 [place] [facility] [place] [facility] Respiratory rate 2021-09-20 23:21:00 18 /min [facility] [place] [facility] Body height 2021-09-20 23:21:00 177.8 cm [facility] [place] [facility] [place] Body weight 2021-09-20 23:21:00 97.523 kg [facility] [place] [facility] BMI 2021-09-20 23:21:00 30.85 kg/m2 [facility] [place] [facility] Oxygen saturation in 2021-09-20 23:21:00 96 /min University of Arterial blood by [facility] Pulse oximetry Branch Systolic blood 2021-06-18 15:12:00 121 mm[Hg] Univer sity of pressure [facility] Diastolic blood 2021-06-18 15:12:00 82 mm[Hg] Unive rsity of pressure [facility] Heart rate 2021-06-18 15:12:00 90 /min [facility] Body temperature 2021-06-18 15:12:00 37.22 [place] [facility] Respiratory rate 2021-06-18 15:12:00 18 /min [facility] [place] [facility] Body height 2021-06-18 15:12:00 177.8 cm [facility] Body weight 2021-06-18 15:12:00 97.523 kg [facility] [place] [facility] BMI 2021-06-18 15:12:00 30.85 kg/m2 [facility] [place] [facility] Oxygen saturation in 2021-06-18 15:12:00 97 /min University of Arterial blood by [facility] Pulse oximetry Branch Procedures Procedure Date / Time Performed Performing Clinician Sourc e POCT GRP A STREP 2021-06-18 15:25:00 [place] [facility] (MOLECULAR) [facility] Plan of Care Planned Activity Planned Date Details Comments Source Future Scheduled Test COVID-19 VACCINE (1) [facility] [code = COVID-19 VACCINE (1)] Future Scheduled Test Hepatitis C screening [facility] (procedure) [code = 839962138] Future Scheduled Test INFLUENZA VACCINE [facility] [code = INFLUENZA VACCINE] Encounters Start End Encounter Admission Attending Care Care Encounter Source Date/Time Date/Time Type Type Clinicians Facility Department ID 2021-12-01 2021-12-01 Outpatient R REKHA [facility] [id number] Univers 14:20:00 15:09:34 MOSES ity [facility] 2021-12-01 2021-12-01 Outpatient R [facility] [id number] Univers 14:20:00 14:20:00 [id number] ity [facility] 2021-09-20 2021-09-20 Outpatient R [facility] [id number] Univers 17:20:00 18:00:20 LORRAINE ity [facility] 2021-09-20 2021-09-20 Urgent Nicole Lee [facility] [id number] Univers 17:20:00 17:40:00 Lorraine Torres [facility] [id number] ity of [place] [id number] [place] as GABE?BLEA [id number] [address] MEDICAL OFFICE [facility] 2021-09-20 2021-09-20 Outpatient R [facility] [id number] Univers 17:20:00 17:20:00 LORRAINE [id number] ity [facility] 2021-07-15 2021-07-15 Aster Drummond [facility] [id number] Univers 00:00:00 00:00:[address] [facility] [id number] ity of [place] [id number] [place] as GABE?BLEA [id number] [address] MEDICAL OFFICE [facility] 2021-06-19 2021-06-19 Letter RYAN Mora [id number] Univers 00:00:00 00:00:00 (Out) Allyssa BUSTILLOS [id number] it y of [facility] [id number] [place] as [id number] [address] 2021-06-18 2021-06-18 [facility] [id number] Univers 10:07:52 10:27:52 Care [place] [id number] [facility] [id number] [place] as Gabe?Blea [id number] [address] Medical Office Building 2021-06-18 2021-06-18 Outpatient R WILFREDOTAZROBERT [facility] [id number] Univers 10:00:00 10:00:00 [facility] Results Test Description Test Time Test Comments Results Result Comments Source POCT GRP A STREP (MOLECULAR) 2021-06-18 15:25:00 Test Item Value Reference Range Interpretation Comme nts POCT GP A STREP (test code = 67833-9) neg Negative - Negat johan Lab Interpretation (test code = 45951-5) Normal [facility]
[2022-04-07 16:03] LABS: Urine Blood Trace-intact (Negative); Urine Glucose Negative (Negative); Urine Protein 1+ (Negative); Urine Specific Gravity >=1.030 (1.005-1.030); Urine pH 5.5 (5.0-7.0)
[2022-04-07] MEDS ORDERED: NA CHLORIDE 0.9% 1,000 ML ONE (16:07)
[2022-04-07] MEDS ORDERED: ONDANSETRON 4 MG/2 ML VIAL ONE (16:07)
[2022-04-07] MEDS ORDERED: HYDROMORPHONE HCL 1 MG/ML INJ ONE ×3 (16:07→19:57)
[2022-04-07 16:11] LABS: Urine Bacteria 20-50 /HPF (<20); Urine Mucus 1+ /HPF (None Seen); Urine RBC <5 /HPF (None Seen)
--- NOTE | 2022-04-07 16:25 | RAD REPORT ---
EXAM DESCRIPTION: CTStone Protocol - 04/07/2022 4:14 pm CLINICAL HISTORY: Flank pain, kidney stone suspected COMPARISON: No comparisons TECHNIQUE: CT of the abdomen and pelvis was performed. All CT scans are performed using dose optimization technique as appropriate and may include automated exposure control or mA/KV adjustment according to patient size. FINDINGS: Lower chest: No acute abnormality. Liver: No acute abnormality or suspicious lesions. Biliary: No biliary ductal dilatation. Stomach: No significant focal abnormality. Duodenum: No significant focal abnormality. Pancreas: No significant abnormality. Spleen: No significant abnormality. Adrenal: No suspicious lesions. Kidney/ureter: Mild left-sided hydroureteronephrosis secondary to a 7 mm stone in the left distal ure ter. Punctate stone lower pole the right kidney. Retroperitoneum: No retroperitoneal adenopathy. Vascular: No aneurysm. Bowel: No significant focal abnormality. Peritoneum: No ascites or free air. Bladder: Grossly unremarkable. Reproductive: No adnexal masses. Bones: No acute fracture. Other: n/a IMPRESSION: Mild left-sided hydroureteronephrosis secondary to a 7 mm stone in the left distal urete r.
[2022-04-07 16:26] LABS: Absolute Lymphocytes (CBC) 1.7 K/uL (0.7-4.9)
[2022-04-07 16:29] LABS: Hematocrit 45.8 % (39.6-49.0); Lymphocytes % 27.5 % (15.3-44.8); MCV 88.2 fL (80-100); MPV 9.3 fL (7.6-11.3)
[2022-04-07 16:38] LABS: Albumin 4.2 g/dL (3.4-5.0); Bilirubin Total 0.8 mg/dL (0.2-1.0); Potassium 4.1 mmol/L (3.5-5.1); Protein, Total 8.1 g/dL (6.4-8.2)
[2022-04-07] MEDS ORDERED: MAGNESIUM SULFATE 1 gm IVPB 1 GM/100 ML BAG IV ONE (16:55)
[2022-04-07] MEDS ORDERED: TAMSULOSIN 0.4 MG SR CAP ONE (16:55)
[2022-04-07] MEDS ORDERED: CEFTRIAXONE 1000 MG/VIAL ONE (16:55)
[2022-04-07] MEDS ORDERED: NA CHLORIDE 0.9% 100 ML ONE (17:03)
--- NOTE | 2022-04-07 18:59 | ER ---
Nurse's Notes [facility] Name: Andrew Wang Age: 36 yrs Sex: Male : 1985 Arrival Date: 04/07/2022 Time: 15:23 Bed 18 Private MD: Homero Sánchez Diagnosis: Calculus of ureter-left Presentation: 04/07 15:43 Chief complaint: Patient states: sudden onset of LLQ pain and inability to void with vg1 NV; also stated diarrhea for two days, had covid last week; pt appears to be diaphoretic. Coronavirus screen: Vaccine status: Patient reports being unvaccinated. Client denies travel out of the [place] in the last 14 days. Ebola Screen: Patient denies exposure to infectious person. Patient denies travel to an Ebola-affected area in the 21 days before illness onset. Initial Sepsis Screen: Does the patient meet any 2 criteria? No. Patient's initial sepsis screen is negative. Does the patient have a suspected source of infection? No. Patient's initial sepsis screen is negative. Risk Assessment: Do you want to hurt yourself or someone else? Patient reports no desire to harm self or others. Onset of symptoms was April 07, 2022. 15:43 Method Of Arrival: Ambulatory vg1 15:43 Acuity: ANUSHKA 3 vg1 Triage Assessment: 15:45 General: Appears uncomfortable, Behavior is cooperative. Pain: Complains of pain in vg1 posterior aspect of right lateral abdomen and left lower quadrant Pain currently is 10 out of 10 on a pain scale. GI: Reports lower abdominal pain, diarrhea, nausea, vomiting. : Reports inability to void. Historical: - Allergies: 15:45 No Known Allergies; vg1 - PMHx: 15:45 Anxiety; pinched nerve neck; vg1 - Immunization history:: Client reports having NOT received the Covid vaccine. - Social history:: Smoking status: Patient reports use of chewing tobacco. Screenin:52 Abuse screen: Denies threats or abuse. Nutritional screening: No deficits noted. tw2 Tuberculosis screening: No symptoms or risk factors identified. Fall Risk None identified. Assessment: 16:05 General: Appears uncomfortable, Behavior is fussy, restless. Pain: Complains of pain in tw2 left lower quadrant and posterior aspect of right lateral abdomen. Neuro: Level of Consciousness is awake, alert, obeys commands, Oriented to person, place, time, situation. Cardiovascular: Patient's skin is warm and dry. Respiratory: Airway is patent Respiratory effort is even, unlabored, Respiratory pattern is regular, symmetrical. GI: na Abdomen is tender to palpation X 4 quads. : Reports inability to void, urgency. Musculoskeletal: Range of motion: intact in all extremities. 17:02 Reassessment: Patient appears in no apparent distress at this time. Patient and/or tw2 family updated on plan of care and expected duration. Pain level reassessed. Patient is alert, oriented x 3, equal unlabored respirations, skin warm/dry/pink. Patient states symptoms have improved. 18:54 Reassessment: provider at bedside at this time.. tw2 18:54 Reassessment: Patient and/or family updated on plan of care and expected duration. Pain tw2 level reassessed. Patient is alert, oriented x 3, equal unlabored respirations, skin warm/dry/pink. Patient states symptoms have not improved. 20:02 General: Appears in no apparent distress. uncomfortable, Behavior is calm, cooperative. lg3 Pain: Complains of pain in left lower quadrant. Neuro: No deficits noted. Level of Consciousness is awake, alert, obeys commands, Oriented to person, place, time, situation. Cardiovascular: No deficits noted. Denies chest pain, shortness of breath, Capillary refill < 3 seconds Clubbing of nail beds is absent JVD is absent Patient's skin is warm and dry. Respiratory: No deficits noted. Airway is patent Trachea midline Respiratory effort is even, unlabored, Respiratory pattern is regular, symmetrical. GI: Bowel sounds present X 4 quads. Abd is soft X 4 quads Abdomen is tender to palpation X 4 quads. : Reports inability to void, urgency. EENT: No deficits noted. No signs and/or symptoms were reported regarding the EENT system. Derm: No deficits noted. No signs and/or symptoms reported regarding the dermatologic system. Skin is intact, is healthy with good turgor, Skin is dry, Skin temperature is warm. Musculoskeletal: No deficits noted. No signs and/or symptoms reported regarding the musculoskeletal system. Circulation, motion, and sensation intact. Range of motion: intact in all extremities. 22:16 Reassessment: Patient appears in no apparent distress at this time. No changes from lg3 previously documented assessment. Patient and/or family updated on plan of care and expected duration. Pain level reassessed. Patient is alert, oriented x 3, equal unlabored respirations, skin warm/dry/pink. 22:33 General: report called to ELAINE Wilde with [facility] . lg3 Vital Signs: 15:43 BP 130 / 103; Pulse 97; Resp 20; Temp 97.2; Pulse Ox 99% on R/A; Weight 99.79 kg; vg1 Height 5 ft. 10 in. (177.80 cm); Pain 10/10; 17:01 BP 124 / 80; Pulse 73; Resp 17; Pulse Ox 95% on R/A; tw2 18:00 BP 118 / 72; Pulse 71; Resp 15; Pulse Ox 95% ; Pain 10/10; jl7 18:52 BP 118 / 72; Pulse 73; Resp 17; Pulse Ox 95% on R/A; tw2 22:16 BP 108 / 68; Pulse 72; Resp 16 S; Pulse Ox 96% on R/A; lg3 15:43 Body Mass Index 31.57 (99.79 kg, 177.80 cm) vg1 ED Course: 15:23 Patient arrived in ED. mr 15:24 Homero Sánchez MD is Private Physician. mr 15:24 [facility]. cp 15:24 Mary Kate Pollock is Attending Physician. cp 15:45 Triage completed. vg1 15:45 Arm band placed on. vg1 15:46 Bed in low position. Call light in reach. Side rails up X 1. Adult w/ patient. Cardiac tw2 monitor on. Pulse ox on. NIBP on. Warm blanket given. 15:57 Lesley Tipton RN is Primary Nurse. tw2 16:04 Urine collected: clean catch specimen, clear. jl7 16:05 Inserted saline lock: 20 gauge in left antecubital area, using aseptic technique. Blood tw2 collected. 16:16 CT Stone Protocol In Process Unspecified. EDMS 20:00 SARS-COV-2 RT PCR (Document "Date of Onset" if Symptomatic) Sent. lg3 22:33 No provider procedures requiring assistance completed. Patient transferred, IV remains lg3 in place. intact, No redness/swelling at site. Administered Medications: 16:05 Drug: NS 0.9% 1000 ml Route: IV; Rate: 1 bolus; Site: left antecubital; tw2 17:45 Follow up: Response: No adverse reaction; IV Status: Completed infusion; IV Intake: jl7 1000ml 16:05 Drug: Zofran (Ondansetron) 4 mg Route: IVP; Site: left antecubital; tw2 16:28 Follow up: Response: Nausea is decreased tw2 16:07 Drug: Dilaudid (HYDROmorphone) 1 mg Route: IVP; Site: left antecubital; tw2 16:48 Follow up: Response: No adverse reaction; Pain is decreased; RASS: Alert and Calm (0) tw2 17:05 Drug: Flomax (tamsulosin) 0.4 mg Route: PO; tw2 18:07 Follow up: Response: No adverse reaction jl7 17:05 Drug: Magnesium Sulfate 1 grams Route: IVPB; Infused Over: 1 hrs; Site: left tw2 antecubital; 18:05 Follow up: Response: No adverse reaction; IV Status: Completed infusion jl7 18:05 Drug: Dilaudid (HYDROmorphone) 1 mg Route: IVP; Site: left antecubital; jl7 19:50 Follow up: Response: No adverse reaction; No change in condition lg3 18:07 Drug: Rocephin (cefTRIAXone) 1 grams Route: IV; Rate: calculated rate; Site: left jl7 antecubital; 19:51 Follow up: IV Status: Completed infusion lg3 20:00 Drug: Dilaudid (HYDROmorphone) 1 mg Route: IVP; Site: left antecubital; lg3 20:02 Follow up: Response: No adverse reaction lg3 20:00 Drug: Ketorolac 15 mg Route: IVP; Site: left antecubital; lg3 20:02 Follow up: Response: No adverse reaction lg3 23:58 Drug: Dilaudid (HYDROmorphone) 1 mg Route: IVP; Site: left antecubital; vc1 23:58 Follow up: Response: No adverse reaction vc1 Medication: 18:52 VIS not applicable for this client. tw2 Intake: 17:45 IV: 1000ml; Total: 1000ml. 7 Outcome: 18:59 ER care complete, transfer ordered by MD. cp 22:33 Transferred by ground EMS Transfer form completed. lg3 22:33 Condition: stable 22:33 Instructed on the need for transfer, Demonstrated understanding of instructions. 04/08 00:19 Patient left the ED. vc1 Signatures: Dispatcher [employer] QUANGZahra EspinozaPolo, Lesley Barrientos cp, RN RN tw2 Marielos Barksdale, RN RN jl7 Jackie Sotelo RN RN lg3 Ayse Millan RN RN vg1 Gail Barlow RN RN vc1
--- NOTE | 2022-04-07 18:59 | EDPHYS ---
Physician Documentation [facility] Name: Andrew Wang Age: 36 yrs Sex: Male : 1985 Arrival Date: 04/07/2022 Time: 15:23 Bed 18 Private MD: Homero Sánchez ED Physician Mary Kate Pollock HPI: 04/07 16:00 This 36 yrs old Male presents to ER via Ambulatory with complaints of Abdominal Pain, cp Urinary Problem. 16:00 The patient complains of pain in the left flank. cp 16:00 The pain radiates to the left lower quadrant. Onset: The symptoms/episode cp began/occurred suddenly, today. Associated signs and symptoms: Pertinent positives: dysuria, Pertinent negatives: pain radiating to the lower extremities. Severity of pain: in the emergency department the pain is unchanged despite home interventions. Historical: - Allergies: 15:45 No Known Allergies; vg1 - PMHx: 15:45 Anxiety; pinched nerve neck; vg1 - Immunization history:: Client reports having NOT received the Covid vaccine. - Social history:: Smoking status: Patient reports use of chewing tobacco. ROS: 16:05 Back: Positive for flank pain, on the left. cp 16:05 Constitutional: Negative for body aches, chills, fever, poor PO intake. cp 16:05 Eyes: Negative for injury, pain, redness, and discharge. cp 16:05 ENT: Negative for drainage from ear(s), ear pain, sore throat, difficulty swallowing, difficulty handling secretions. 16:05 Cardiovascular: Negative for chest pain, edema, palpitations. 16:05 Respiratory: Negative for cough, shortness of breath, wheezing. 16:05 Abdomen/GI: Positive for abdominal pain, nausea and vomiting, diarrhea, Negative for constipation. 16:05 : Positive for urinary symptoms. 16:05 All other systems are negative. Exam: 16:10 Constitutional: The patient appears in no acute distress, alert, awake, non-toxic, well cp developed, well nourished, in obvious pain, uncomfortable. 16:10 Head/Face: Normocephalic, atraumatic. cp 16:10 Eyes: Periorbital structures: appear normal, Conjunctiva: normal, no exudate, no injection, Sclera: no appreciated abnormality, Lids and lashes: appear normal, bilaterally. 16:10 ENT: External ear(s): are unremarkable, Nose: is normal, Mouth: Lips: moist, Oral mucosa: moist, Posterior pharynx: Airway: no evidence of obstruction, patent. 16:10 Chest/axilla: Inspection: normal, Palpation: is normal, no crepitus, no tenderness. 16:10 Cardiovascular: Rate: normal, Rhythm: regular. 16:10 Respiratory: the patient does not display signs of respiratory distress, Respirations: normal, no use of accessory muscles, no retractions, labored breathing, is not present, Breath sounds: are clear throughout, no decreased breath sounds, no stridor, no wheezing. 16:10 Abdomen/GI: Inspection: abdomen appears normal, Bowel sounds: active, all quadrants, Palpation: soft, in all quadrants, severe abdominal tenderness, in the anterior aspect of left lateral abdomen and posterior aspect of left lateral abdomen, rebound tenderness, is not appreciated, voluntary guarding, is elicited in the anterior aspect of left lateral abdomen and posterior aspect of left lateral abdomen. 16:10 Skin: cellulitis, is not appreciated, no rash present. 16:10 Neuro: Orientation: to person, place \\T\\ time. Mentation: is normal, Motor: moves all fours, strength is normal, Sensation: is normal. Vital Signs: 15:43 BP 130 / 103; Pulse 97; Resp 20; Temp 97.2; Pulse Ox 99% on R/A; Weight 99.79 kg; vg1 Height 5 ft. 10 in. (177.80 cm); Pain 10/10; 17:01 BP 124 / 80; Pulse 73; Resp 17; Pulse Ox 95% on R/A; tw2 18:00 BP 118 / 72; Pulse 71; Resp 15; Pulse Ox 95% ; Pain 10/10; jl7 18:52 BP 118 / 72; Pulse 73; Resp 17; Pulse Ox 95% on R/A; tw2 22:16 BP 108 / 68; Pulse 72; Resp 16 S; Pulse Ox 96% on R/A; lg3 15:43 Body Mass Index 31.57 (99.79 kg, 177.80 cm) vg1 MDM: 15:52 Patient medically screened. cp 16:00 Differential diagnosis: nephrolithiasis, pyelonephritis, UTI, testicular torsion, cp diverticulitis. 19:00 Data reviewed: vital signs, nurses notes, lab test result(s), radiologic studies, CT cp scan. 19:00 Response to treatment: Improved, but patient continues to require IV pain meds, will cp transfer for urology consult. 04/07 15:54 Order name: CBC with Diff; Complete Time: 16:44 04/07 15:54 Order name: CMP; Complete Time: 16:44 04/07 15:54 Order name: Lipase; Complete Time: 16:44 04/07 15:54 Order name: Urine Microscopic Only; Complete Time: 16:44 04/07 19:35 Interpretation: Reviewed. 04/07 16:03 Order name: Urine Dipstick-Ancillary; Complete Time: 16:44 EDPR 04/07 16:14 Order name: Urine Culture EDPR 04/07 15:54 Order name: CT Stone Protocol; Complete Time: 16:44 04/07 18:33 Interpretation: Report reviewed. 04/07 19:01 Order name: SARS-COV-2 RT PCR (Document "Date of Onset" if Symptomatic) ds4 04/07 15:54 Order name: IV Saline Lock; Complete Time: 16:09 04/07 15:54 Order name: Labs collected and sent; Complete Time: 16:09 04/07 15:54 Order name: Urine Dipstick-Ancillary (obtain specimen); Complete Time: 16:04 cp Administered Medications: 16:05 Drug: NS 0.9% 1000 ml Route: IV; Rate: 1 bolus; Site: left antecubital; tw2 17:45 Follow up: Response: No adverse reaction; IV Status: Completed infusion; IV Intake: jl7 1000ml 16:05 Drug: Zofran (Ondansetron) 4 mg Route: IVP; Site: left antecubital; tw2 16:28 Follow up: Response: Nausea is decreased tw2 16:07 Drug: Dilaudid (HYDROmorphone) 1 mg Route: IVP; Site: left antecubital; tw2 16:48 Follow up: Response: No adverse reaction; Pain is decreased; RASS: Alert and Calm (0) tw2 17:05 Drug: Flomax (tamsulosin) 0.4 mg Route: PO; tw2 18:07 Follow up: Response: No adverse reaction jl7 17:05 Drug: Magnesium Sulfate 1 grams Route: IVPB; Infused Over: 1 hrs; Site: left tw2 antecubital; 18:05 Follow up: Response: No adverse reaction; IV Status: Completed infusion jl7 18:05 Drug: Dilaudid (HYDROmorphone) 1 mg Route: IVP; Site: left antecubital; jl7 19:50 Follow up: Response: No adverse reaction; No change in condition lg3 18:07 Drug: Rocephin (cefTRIAXone) 1 grams Route: IV; Rate: calculated rate; Site: left jl7 antecubital; 19:51 Follow up: IV Status: Completed infusion lg3 20:00 Drug: Dilaudid (HYDROmorphone) 1 mg Route: IVP; Site: left antecubital; lg3 20:02 Follow up: Response: No adverse reaction lg3 20:00 Drug: Ketorolac 15 mg Route: IVP; Site: left antecubital; lg3 20:02 Follow up: Response: No adverse reaction lg3 23:58 Drug: Dilaudid (HYDROmorphone) 1 mg Route: IVP; Site: left antecubital; vc1 23:58 Follow up: Response: No adverse reaction vc1 Disposition: 04/08 07:39 STAFF ATTESTATION STATEMENT I was immediately available on-site in the Emergency sd2 Department for consultation in the care of the patient. Mary Kate Pollock MD. Disposition Summary: 04/07/22 18:59 Transfer Ordered Transfer Location: [facility] cp Reason: Higher level of care cp Condition: Stable cp Problem: new cp Symptoms: have improved cp Accepting Physician: Doctor(04/08/22 00:19) vc1 Diagnosis - Calculus of ureter - left cp Forms: - Medication Reconciliation Form cp - SBAR form cp Signatures: Dispatcher [employer] EDMS Polo Patiño PA PA cp Wise, Tara RN RN tw2 Marielos Barksdale RN RN jl7 Jackie Sotelo RN RN lg3 Ayse Millan RN RN vg1 Gail Barlow RN RN Mary Kate Huang2 Corrections: (The following items were deleted from the chart) 00:19 04/07 18:59 Doctor cp vc1
[2022-04-07] MEDS ORDERED: KETOROLAC 30 MG/ML INJ ONE (19:57)
[2022-04-08] MEDS ORDERED: HYDROMORPHONE HCL 2 MG/ML inj ONE
[2022-04-08 00:58] VITALS: TEMP 97.2
[2022-04-08 01:08] VITALS: BP 108/68; O2SAT 96
== END 2022-04-08 00:19 | disposition short-term general hospital (02) ==
LOC: ER 15:22
DX: N20.1 Calculus of ureter (principal); F17.220 Nicotine dependence, chewing tobacco, uncomplicated; Z20.822 Contact with and (suspected) exposure to COVID-19
CPT/HCPCS: 96365; 96367; 96361; 87088; 85025; 87086; 36415; 83690; 80053; 76377; 74176; 96375; 99285; 96366; U0003; J3475; J1170 ×3; J7030; J2405; 81003; 81015

== ENCOUNTER 2022-04-12 19:08 | Emergency (ER) | payer BC ==
[2022-04-12] MEDS ORDERED: HYDROCODONE/APAP 5/325 MG TAB ONE (21:54)
--- NOTE | 2022-04-12 23:36 | ER ---
Nurse's Notes [facility] Name: Andrew Wang Age: 36 yrs Sex: Male : 1985 Arrival Date: 04/12/2022 Time: 19:10 Bed Treatment Private MD: Diagnosis: Phlebitis and thrombophlebitis of superficial vessel of left upper extremity Presentation: 04/12 20:16 Chief complaint: Patient states: "I had kidney stone last Saturday and I got tw5 transferred to [facility]. Saturday morning I woke up and my IV site was hurting and red. They removed it, but sine then my IV site has been hurting. I can hardly straighten in my arm now.". Coronavirus screen: Vaccine status: Patient reports being unvaccinated. Ebola Screen: Patient negative for fever greater than or equal to 101.5 degrees Fahrenheit, and additional compatible Ebola Virus Disease symptoms Patient denies exposure to infectious person. Patient denies travel to an Ebola-affected area in the 21 days before illness onset. Initial Sepsis Screen: Does the patient meet any 2 criteria? HR > 90 bpm. Does the patient have a suspected source of infection? Yes: Skin breakdown/wound. Risk Assessment: Do you want to hurt yourself or someone else? Patient reports no desire to harm self or others. Onset of symptoms was April 10, 2022. 20:16 Method Of Arrival: Ambulatory tw5 20:16 Acuity: ANUSHKA 3 tw5 Triage Assessment: 20:18 General: Appears in no apparent distress. Behavior is calm, cooperative, appropriate tw5 for age. Pain: Complains of pain in left antecubital area Pain currently is 7 out of 10 on a pain scale. EENT:. Derm: Skin is intact, Skin is red, Skin temperature is warm. Historical: - PMHx: 20:18 Anxiety; pinched nerve neck; tw5 - Immunization history:: Flu vaccine is not up to date. - Social history:: Smoking status: Patient reports use of chewing tobacco. Screenin:22 Abuse screen: Denies threats or abuse. Denies injuries from another. Nutritional tw5 screening: No deficits noted. Tuberculosis screening: No symptoms or risk factors identified. Fall Risk None identified. Assessment: 21:00 Reassessment: See triage assessment. vc1 22:00 Reassessment: Patient and/or family updated on plan of care and expected duration. Pain vc1 level reassessed. Patient is alert, oriented x 3, equal unlabored respirations, skin warm/dry/pink. 23:00 Reassessment: Patient and/or family updated on plan of care and expected duration. Pain vc1 level reassessed. Patient is alert, oriented x 3, equal unlabored respirations, skin warm/dry/pink. Vital Signs: 20:16 BP 117 / 80; Pulse 101; Resp 18; Temp 98.1; Pulse Ox 97% on R/A; Weight 99.79 kg; tw5 Height 5 ft. 10 in. (177.80 cm); Pain 7/10; 20:16 Body Mass Index 31.57 (99.79 kg, 177.80 cm) tw5 ED Course: 19:10 Patient arrived in ED. as 19:25 Lorenzo Gary NP is PHCP. pm1 19:25 Addison Hsu MD is Attending Physician. pm1 20:18 Triage completed. tw5 20:18 Arm band placed on right wrist. tw5 20:22 No provider procedures requiring assistance completed. tw5 21:15 Patient has correct armband on for positive identification. vc1 21:48 UPPER EXTREMITY VENOUS UNILATE In Process Unspecified. EDMS 23:45 Patient did not have IV access during this emergency room visit. vc1 Administered Medications: 21:52 Drug: HYDROcodone-acetaminophen 5 mg-325 mg 1 tabs Route: PO; vc1 Medication: 23:17 VIS not applicable for this client. vc1 Outcome: 23:16 Condition: good vc1 23:36 Discharge ordered by . pm1 23:45 Discharged to home ambulatory. vc1 23:45 Discharge instructions given to patient, Instructed on discharge instructions, follow up and referral plans. medication usage, Demonstrated understanding of instructions, follow-up care, medications, Prescriptions given X 1. 23:45 Patient left the ED. vc1 Signatures: Dispatcher [employer] EDMS Terese Schroeder Patrick, NP PARTS ADMINISTRATOR pm1 Jaye Montejo tw5 Gail Barlow RN RN vc1
--- NOTE | 2022-04-12 23:36 | EDPHYS ---
Physician Documentation [facility] Name: Andrew Wang Age: 36 yrs Sex: Male : 1985 Arrival Date: 04/12/2022 Time: 19:10 Bed Treatment Private MD: ED Physician Addison Hsu HPI: 04/12 20:26 This 36 yrs old Male presents to ER via Ambulatory with complaints of Arm Pain - pm1 swelling at previous iv site, InQuicker 1915. 20:26 The patient or guardian complains of pain, swelling. The complaints affect the left pm1 antecubital area. Context: The problem was sustained at the hospital, resulted from IV site. Onset: The symptoms/episode began/occurred 3 day(s) ago. Treatment prior to arrival includes: no previous treatment. Modifying factors: The symptoms are alleviated by remaining still, the symptoms are aggravated by movement, bending arm. Associated signs and symptoms: Pertinent positives: swelling, tenderness, Pertinent negatives: fever. Severity of symptoms: in the emergency department the symptoms are unchanged. The patient has not experienced similar symptoms in the past. The patient has been recently seen by a physician: with different complaint(s), 36-year-old patient presents to the ER with complaints of left AC swelling from prior IV site. Patient an IV placed on Saturday and patient reported irritation and pain to that area since. Patient had IV changed to right hand however symptoms and left AC have not improved. Patient concerned about possible blood clot to left arm. Negative for fever. Historical: - PMHx: 20:18 Anxiety; pinched nerve neck; tw5 - Immunization history:: Flu vaccine is not up to date. - Social history:: Smoking status: Patient reports use of chewing tobacco. ROS: 20:26 Constitutional: Negative for fever, chills, and weight loss, Cardiovascular: Negative pm1 for chest pain, palpitations, and edema, Respiratory: Negative for shortness of breath, cough, wheezing, and pleuritic chest pain. 20:26 Neuro: Negative for headache, weakness, numbness, tingling, and seizure. 20:26 MS/extremity: Positive for pain, swelling, tenderness, of the left antecubital area, Negative for paresthesias, tingling. 20:26 Skin: Positive for swelling, of the left antecubital area, Negative for abscesses. 20:26 All other systems are negative. Exam: 20:26 Constitutional: This is a well developed, well nourished patient who is awake, alert, pm1 and in no acute distress. Head/Face: Normocephalic, atraumatic. 20:26 Eyes: Exam is negative for acute changes, Periorbital structures: appear normal, Pupils: no acute changes, Extraocular movements: no acute changes, Conjunctiva: no acute changes, no injection. 20:26 ENT: Exam is negative for acute changes, Mouth: no acute changes, Lips: normal, moist, Oral mucosa: normal, pink and intact, moist. 20:26 Cardiovascular: Exam negative for acute changes, Rate: normal, Rhythm: regular, Pulses: no pulse deficits are appreciated. 20:26 Respiratory: Exam negative for acute changes, respiratory distress, shortness of breath. 20:26 Musculoskeletal/extremity: Extremities: grossly normal except: noted in the left antecubital area and palmar surface of proximal forearm: swelling, tenderness, There is no evidence of decreased ROM, deformity. 20:26 Skin: Appearance: normal except for affected area, swelling, noted on the left antecubital area and proximal dorsal aspect of left forearm, that are mild, abscess, not appreciated, cellulitis, is not appreciated. 20:26 Neuro: Exam negative for acute changes, Orientation: is normal, Mentation: is normal, Motor: is normal, moves all fours. Vital Signs: 20:16 BP 117 / 80; Pulse 101; Resp 18; Temp 98.1; Pulse Ox 97% on R/A; Weight 99.79 kg; tw5 Height 5 ft. 10 in. (177.80 cm); Pain 7/10; 20:16 Body Mass Index 31.57 (99.79 kg, 177.80 cm) tw5 MDM: 20:29 Patient medically screened. pm1 23:01 ED course: Informed patient and family of preliminary result. Pending radiology report. pm1 23:35 Data reviewed: vital signs. Data interpreted: Pulse oximetry: on room air is 97 %. pm1 Interpretation: normal. Counseling: I had a detailed discussion with the patient and/or guardian regarding: the historical points, exam findings, and any diagnostic results supporting the discharge/admit diagnosis, radiology results, the need for outpatient follow up, to return to the emergency department if symptoms worsen or persist or if there are any questions or concerns that arise at home. 04/12 20:52 Order name: UPPER EXTREMITY VENOUS UNILATE EDMS Administered Medications: 21:52 Drug: HYDROcodone-acetaminophen 5 mg-325 mg 1 tabs Route: PO; vc1 Disposition: 04/13 01:04 Co-signature as Attending Physician, Addison Hsu MD. rn Disposition Summary: 04/12/22 23:36 Discharge Ordered Location: Home pm1 Problem: new pm1 Symptoms: have improved pm1 Condition: Stable pm1 Diagnosis - Phlebitis and thrombophlebitis of superficial vessel of left upper extremity pm1 Followup: pm1 - With: Emergency Department - When: As needed - Reason: Worsening of condition Followup: pm1 - With: Private Physician - When: 2 - 3 days - Reason: Recheck today's complaints, Continuance of care, Re-evaluation by your physician Discharge Instructions: - Discharge Summary Sheet pm1 - Thrombophlebitis pm1 Forms: - Medication Reconciliation Form pm1 - Thank You Letter pm1 - Antibiotic Education pm1 - Prescription Opioid Use pm1 Prescriptions: - Bactrim DS 800-160 mg Oral Tablet - take 1 tablet by ORAL route every 12 hours for 10 days; 20 tablet; Refills: 0, pm1 Product Selection Permitted Signatures: Dispatcher [employer] EDAddison Dailey MD MD rn Lorenzo Gary, GAMBLING [employer]OKER GAMBLING BROKER pm1 Jaye Montejo tw5 Gail Barlow RN RN vc1 Corrections: (The following items were deleted from the chart) 04/12 20:52 20:31 Extremity Venous [email or web address] ordered. [facility] EDMS
[2022-04-13 03:29] VITALS: BP 117/80; TEMP 98.1; O2SAT 97
--- NOTE | 2022-04-13 10:42 | RAD REPORT ---
EXAM DESCRIPTION: US - UPPER EXTREMITY VENOUS UNILATE - 04/12/2022 9:56 pm CLINICAL HISTORY: Pain. Swelling in forearm after getting an IV last week. COMPARISON: None. TECHNIQUE: Survey ultrasound imaging of the deep venous system of left neck and upper extremity was performed including grayscale, color, and spectral Doppler evaluation with inventory representative images obta ined. Segmental venous compression was performed where feasible. FINDINGS: Left Upper Extremity: Internal jugular vein: Patent without thrombus. Pulsatility is indirect evidence of central patency. Subclavian vein: Patent without thrombus. Axillary vein: Patent without thrombus. Brachial vein(s): Patent without thrombus. Superficial cephalic vein: Patent without thrombus. Superficial basilic vein: Patent without thrombus. There is a superficial venous thrombosis of a vein in the forearm. IMPRESSION: 1. Superficial venous thrombosis in the forearm. 2. Negative for left upper extremity deep venous thrombosis. Electronically signed by: Debbie Russ MD 04/12/2022 10:33 PM CDT Due to temporary technical issues with the PACS/Fluency reporting system, reports are being signed by the in house radiologists without review as a courtesy to insure prompt reporting. The interpreting radiologist is fully responsible for the content of the report.
== END 2022-04-12 23:45 | disposition home or self-care (01) ==
LOC: ER 19:08
DX: I80.8 Phlebitis and thrombophlebitis of other sites (principal); F17.220 Nicotine dependence, chewing tobacco, uncomplicated
CPT/HCPCS: 93971; 99283